=== PATIENT | male | born 1975 | race African-American/Black ===

== ENCOUNTER 2021-12-11 08:07 | Outpatient (REF) | payer OTHER, SELFPAY ==
[2021-12-11 08:49] LABS: Hematocrit 41.9 % (42.0-52.0); Hemoglobin 13.9 g/dl (14.0-18.0); Mean Corpuscular HGB Conc 33.2 g/dl (31.0-36.0); Mean Corpuscular Hemoglobin 28.1 pg (27.0-33.0); Mean Corpuscular Volume 84.6 fL (80.0-98.0); Platelet Count 180 X10*3/uL (160-400); Red Blood Count 4.95 X10*6/uL (4.60-5.80); Red Cell Distribution Width 13.3 % (11.0-16.0); White Blood Count 3.7 X10*3/uL (4.8-10.8)
[2021-12-11 09:30] LABS: Alanine Aminotransferase 19 U/L (0-40); Albumin Level 4.2 g/dL (3.5-5.0); Alkaline Phosphatase 95 U/L (39-117); Anion Gap 12 (12-20); Aspartate Amino Transferase 18 U/L (5-37); Bilirubin Total 0.5 mg/dL (0.0-1.0); Blood Urea Nitrogen 18 mg/dL (9-16); Calcium 9.5 mg/dL (8.4-10.2); Carbon Dioxide 25 mmol/L (22-29); Chloride 106 mmol/L (96-108); Cholesterol 245 mg/dL; Estimated Glomerular Filt Rate > 60; Glucose Fasting 103 mg/dL (60-99); HDL Cholesterol 59 mg/dL; LDL Cholesterol Calculated 168 mg/dl; Potassium 4.4 mmol/L (3.3-5.1); Sodium 139 mmol/L (135-145); Total Protein 7.6 g/dL (6.5-8.0); Triglycerides 90 mg/dL
[2021-12-11 09:51] LABS: Prostate Specific Antigen Scr 0.37 ng/mL (<0.05-4.0); TSH reflex Free T4 1.49 uIU/mL (0.32-4.0)
[2021-12-11 10:00] LABS: Microalbumin Urine < 5.0 mg/L
== END 2021-12-11 08:08 | disposition home or self-care (01) ==
LOC: HO.LAB 08:07
PROVIDERS: PCP Physician Assistant; Visit Provider Physician Assistant
DX: Z12.5 Encounter for screening for malignant neoplasm of prostate (principal); E66.09 Other obesity due to excess calories; Z68.39 Body mass index [BMI] 39.0-39.9, adult; I10 Essential (primary) hypertension
CPT/HCPCS: 36415; 80053; 80061; 82043; 84153; 84443; 85027

== ENCOUNTER 2023-06-07 13:45 | Outpatient (AMB) | payer MEDICARE, SELFPAY ==
--- NOTE | 2023-06-07 13:58 | A.OFFPC_ITS ---
Vital Signs 06/07/23 13:59 Height 6 ft 4 in Weight 324 lb 8 oz BMI 39.5 BP 130/90 H Blood Pressure Location Lt brachial Position Sitting Pulse Source Pulse Oximeter Pulse Oximetry (%) 98 Oxygen Delivery Method Room Air Intake Visit Reasons: f/u Intake Note: Pt is here for Annual Exam. Store Director Required: No Accompanied by: Self / Same As Patient Allergies No Known Allergies Allergy (Verified 06/07/23 14:20) Medication List - Last Reconciled 06/07/23 by Khari Lyles PA-C blood pressure kit-extra large As directed Tobacco use date assessed: 06/07/23 Dental Screening Dental Screen Date: 06/07/23 Did you have a dental visit in the last 12 months?: Yes Did you have a dental problem in the last 6 months where you did not have access to dental care?: No Was dental information given to patient?: Patient has dentist HPI f/u HPI Details Patient is a 47 year male here today for a follow-up visit. patient has a past medical history significant for obesity hypertension, chronic constipation Concerns-- > he reports he continues to have bilateral hand numbness and tingling. He did have a carpal tunnel release over his right hand though felt it was not effective. He never had gotten a EMG prior to getting carpal tunnel release surgery in 2018. .. Chronic constipation: Reports having constipation over the last year . Need to take stool softner / laxative to use the bathroom. Reports he can go week without using the bathroom. Often has to strain well passing stool. Denies any blood per rectum. He has now been developing some abdominal pain that is fairly global eyes did also reports having some difficulty with swallowing and feels that foods often gets stuck in his lower esophagus .. hypertension: blood pressure elevated today in office. He admits to not regularly taking his blood pressure medication. . Is supposed to be on amlodipine 5 mg. Denies headaches, chest discomforts or shortness of breath on exertion. .. Hyperlipidemia: most recent fasting lipid panel showing total cholesterol at 245, LDL at 160 PLAN: Will work on lifestyle to be more physically active to reduce his weight and reduce his high cholesterol foods in his diet. Laboratory Tests 12/11/21 12/11/21 12/11/21 08:18 08:18 08:20 Hgb 13.9 L Creatinine 1.11 Fasting Glucose 103 H Cholesterol 245 LDL Cholesterol, C alc 168 PSA Screen 0.37 TSH 1.49 Urine Microalbumin < 5.0 PFSH Medical History (Updated 06/07/23 @ 14:42 by Khari Lyles PA-C) Urinary hesitancy Family History Mother DMII (diabetes mellitus, type 2) HTN (hypertension) Father HTN (hypertension) Social History Housing: Apartment Alcohol intake: current Alcohol intake frequency: holidays/special occasions only Alcohol type: beer Patient Tobacco Use Status: Former Tobacco user Quit Date: 2018 Tobacco use type: Cigarette e-Cigarette/Vaping Use: Never Used Second Hand Smoke Exposure: Yes service: No Current occupational status: employed Current occupation: [employer] Cognitive needs: No Hearing needs: No Vision needs: Yes Questionnaire PHQ-9 Over the last 2 weeks, how often have you been bothered by any of the following problems? 1. Little interest or pleasure in doing things: not at all 2. Feeling down, depressed, or hopeless: not at all 3. Trouble falling or staying asleep, or sleeping too much: not at all 4. Feeling tired or having little energy: not at all 5. Poor appetite or overeating: not at all 6. Feeling bad about yourself - or that you are a failure or have let yourself or your family down: not at all 7. Trouble concentrating on things, such as reading the newspaper or watching television: not at all 8. Moving or speaking so slowly that other people could have noticed. Or the opposite - being so fidgety or restless that you have been moving around a lot more than usual: not at all 9. Thoughts that you would be better off or of hurting yourself in some way: not at all Total score: 0 Depression Screening Interpretation: Negative Depression Screening Done: Yes [id number] - PHQ-9 Billing: Yes Source: Developed by Drs. Enrico Herron, Jenise De La Rosa, Troy Alamo and colleagues, with an educational mayur from [employer]. Thrive Questionnaire Date Thrive assessed: 06/07/23 I am a: Patient What is your living situation today?: I have a steady place to live Within the past 12 months, did the food you bought not last and you didn't have the money to get more?: Never true Within the past 12 months, did you worry whether your food would run out before you got money to buy more?: Never true Do you have trouble paying for medicines?: No Do you have trouble getting transportation to medical appointments?: No Do you have trouble paying your heating and electricity bill?: No Do you have trouble taking care of your child, family member or friend?: No Do you have trouble with day-to-day activities such as bathing, preparing meals, shopping, managing finances, etc.?: No Are you currently unemployed and looking for a job?: No Are you interested in more education?: No Please select the resources that you would like help with: None Currently or been in a relationship where the following occur: no concerns reported AUDIT C Alcohol Use Questionnaire (AUDIT-C) 1. How often do you have a drink containing alcohol?: 2-3 times a week 2. How many drinks containing alcohol do you have on a typical day when you are drinking?: 1 or 2 3. How often do you have six or more drinks on one occasion?: Never Total Score: 3 KHOI-7 AMB Questionnaire KHOI-7 Date KHOI - 7 assessed: 06/07/23 Feeling nervous, anxious, or on edge: 0 = Not at all Not being able to stop or control worryin = Not at all Worrying too much about different things: 0 = Not at all Trouble relaxin = Not at all Being so restless that it is hard to sit still: 0 = Not at all Becoming easily annoyed or irritable: 0 = Not at all Feeling afraid as if something awful might happen: 0 = Not at all Total KHOI-7 score (0-4 normal; 5-9 mild; 10-14 moderate; 15-21 severe): 0 Source: Developed by Drs. Enrico Herron, Jenise De La Rosa, Troy Alamo and colleagues, with an educational mayur from [employer]. KHOI-7 Assessment Billing KHOI-7 Assessment Tool: KHOI-7 Assessment 62258 Review of Systems Const Denies headache(s) Eyes Denies loss of vision ENT Denies vertigo, Denies dizziness, Denies headache(s) and Denies sore throat Card Denies chest pain, Denies leg edema and Denies lightheadedness Resp Denies cough, Denies hemoptysis and Denies wheezing GI Reports abdominal pain, Denies melena, Reports constipation, Reports GI cramping, Denies diarrhea and Denies vomiting Denies dysuria, Denies urinary frequency and Denies urinary urgency Musc Denies arthralgias, Denies joint swelling, Denies numbness and Denies tingling Neuro Denies Abnormal speech present, Denies behavioral changes, Denies vertigo, Denies dizziness, Denies headache(s), Denies loss of vision, Denies memory loss, Denies numbness and Denies tingling Psych Denies anxiety, Denies behavioral changes, Denies depression, Denies memory loss and Denies panic attacks Cheikh/Lymph Denies easy bleeding and Denies easy bruising Aller/Immun Denies wheezing Physical exam (Primary Care) Vital Signs: Last Vital Signs BP 130/90 H 06/07/23 13:59 Pulse Ox 98 06/07/23 13:59 Oxygen Delivery Method Room Air 06/07/23 13:59 BMI result Body Mass Index 39.5 Tobacco/Smoking Status: Tobacco use Status Tobacco use date assessed 06/07/23 06/07/23 14:12 Patient Tobacco Use Status Former Tobacco user 06/07/23 14:05 Tobacco use type Cigarette 06/07/23 14:05 e-Cigarette/Vaping Use Never Used 06/07/23 14:05 PHQ-9: PHQ-9 Score PHQ-9: Total score 0 06/07/23 14:26 Depression Screening Interpretation: Negative Thrive Assessment: Date of Thrive Assessment Date Thrive assessed 06/07/23 06/07/23 14:12 Currently or been in a relationship where the following occur: no concerns reported Const General: healthy appearing, no acute distress, alert and awake Nutritional Appearance: well nourished Orientation/consciousness: oriented to person, oriented to place and oriented to time HENMT Ears: TM's normal bilaterally General nose exam: Normal nasal mucous membranes and turbinates present Eyes Conjunctivae: conjunctivae normal Sclerae: sclerae normal Pupils: Equal, round and reactive pupils present Neck Neck: Yes no lymphadenopathy and Yes no JVD Thyroid: Thyroid normal Carotids: no bruits Resp Effort & Inspection: normal respiratory effort and not tachypneic Auscultation: no crackles, no rales, no rhonchi and no wheezes Cardio Rate: regular rate Rhythm: regular rhythm Heart sounds: no murmurs and normal S1 and S2 GI Palpation (GI): Soft to palpation, nontender, no hepatomegaly and no splenomegaly Auscultation: normal bowel sounds Skin General skin exam: no rashes or lesions noted and dry skin Neuro General: oriented to person, oriented to place and oriented to time Cranial nerves: Yes Equal, round and reactive pupils present Speech: No Abnormal speech present Gait exam (Neuro): Normal gait present Motor exam (neuro): no tremor noted Extrem Right upper extremity: full ROM Left upper extremity: full ROM Right lower extremity: full ROM; no edema Left lower extremity: full ROM; no edema Psych Mental Status: mental status grossly normal Speech and movement: Normal speech and movement present Affect: normal affect Attitude: cooperative Thought process: Normal thought process present Office Procedures Flu Questionnaire Does the patient have a severe egg allergy?: No Does the patient have severe life threatening allergies?: No Does the patient have a fever or illness today?: No Has the patient ever had Guillain-[place] Syndrome?: No Has the patient ever had any past reaction to a flu shot?: No Immunizations flu vacc [id number] 6mos up(PF) 60 mcg(15 mcgx4)/0.5 mL IM syringe Performing Provider: Khari Lyles PA-C Performing Location: [facility] Administered by: MAX Holbrook on 06/07/23 14:27 Dose Route Admin Location Dispensed Lot Number Expiration Date [facility] Ammonia Distiller 0.5 mL IM Left Deltoid 0.5 mL [id number] 01/28/24 22631-267-73 [place] VIS Given Date VIS Provided VIS Publication Date 06/07/23 Single Vaccine 21 Eligibility Eligibility Date Funding Source Not [facility] Eligible 06/07/23 Private Assessment and Plan Assessment & Plan (1) HTN (hypertension): Code(s): I10 - Essential (primary) hypertension Qualifiers: Hypertension type: primary hypertension Qualified Code(s): I10 - Essential (primary) hypertension Plan: Blood pressure elevated today in office.. Advised to restart amlodipine 5 mg daily. Goal blood pressures to be below 140/90. Advised to do home blood pressure monitoring to assure normal blood pressures at home. (2) Obesity: Code(s): E66.9 - Obesity, unspecified Qualifiers: Obesity type: due to excess calories Obesity classification: adult class 2 (BMI 35 - 39.9) Serious obesity comorbidity presence: without serious comorbidity Body mass index: BMI 39.0-39.9 Qualified Code(s): E66.09 - Other obesity due to excess calories; Z68.39 - Body mass index [BMI] 39.0-39.9, adult Plan: Patient does understand he has BMI is over 30 will work on being more physically active in adapting to better eating habits to reduce his weight. (3) Constipation: Code(s): K59.00 - Constipation, unspecified Qualifiers: Constipation type: other constipation type Qualified Code(s): K59.09 - Other constipation Plan: Continues to suffer with chronic constipation. Has tried many different stool softeners and laxatives with only minimal relief. He reports he can go 1 week without passing stool. He does strain heavily to pass stool. He is now reporting more more abdominal pain and bloating. He reports the only way he is able to pass stool is to use to collect.. He otherwise denies any blood in his stool. Will evaluated with abdominal ultrasound and a barium swallow due to his upper GI symptoms. Will refer back to [facility] gastro[facility]ology for possible colonosopy (4) HLD (hyperlipidemia): Code(s): E78.5 - Hyperlipidemia, unspecified Qualifiers: Hyperlipidemia type: mixed hyperlipidemia Plan: Patient's most recent fasting lipid panel showing elevated total cholesterol and LDL above 160. Advised on low-cholesterol diet and patient agrees and understands. . (5) Colon cancer screening: Code(s): Z12.11 - Encounter for screening for malignant neoplasm of colon (6) Dysphagia: Code(s): R13.10 - Dysphagia, unspecified Qualifiers: Dysphagia type: unspecified Qualified Code(s): R13.10 - Dysphagia, unspecified Plan: Reports experiencing some dysphagia in the lower esophagus. (7) Carpal tunnel syndrome on both sides: Code(s): G56.03 - Carpal tunnel syndrome, bilateral upper limbs Plan: Patient's signs and symptoms are concerning for continued carpal tunnel syndrome and bilateral hands. Will send for EMG for upper should extremities to evaluate for median nerve neuropathy. Advised patient to consider another carpal tunnel release. Orders: Orders Comprehensive Tye. Panel Fast Today I10 - Essential (primary) hypertension Complete Blood Count no Diff Today I10 - Essential (primary) hypertension FL barium swallow w SBFT Today R13.10 - Dysphagia, unspecified Influenza [id number] Immunization Today Z23 - Encounter for immunization Lipid Panel Today E78.2 - Mixed hyperlipidemia US abdomen complete Today K59.09 - Other constipation NE electromyogram (EMG) Today G56.03 - Carpal tunnel syndrome, bilateral upper limbs Referrals Gastroenterology Referral K59.00 - Constipation, unspecified, Z12.11 - Encounter for screening for malignant neoplasm of colon Medications: New amlodipine 5 mg PO DAILY 90 tabs 1RF R39.11 - Hesitancy of micturition lactulose 20 grams (30 mL) PO DAILY 30 days PRN 1,200 mL 0RF laxative effect K59.09 - Other constipation valacyclovir (Valtrex) 500 mg PO DAILY 30 days 30 tabs 0RF B00.9 - Herpesviral infection, unspecified Coding Level of Care Code Est Pt Level 4 (55300) Diagnoses Primary hypertension I10 Hypertension type: primary hypertension Class 2 obesity due to excess calories without serious comorbidity with body mass index (BMI) of 39.0 to 39.9 in adult E66.09; Z68.39 Obesity type: due to excess calories Obesity classification: adult class 2 (BMI 35 - 39.9) Serious obesity comorbidity presence: without serious comorbidity Body mass index: BMI 39.0-39.9 Other constipation K59.09 Constipation type: other constipation type HLD (hyperlipidemia) E78.5 Hyperlipidemia type: mixed hyperlipidemia Colon cancer screening Z12.11 Dysphagia, unspecified type R13.10 Dysphagia type: unspecified Carpal tunnel syndrome on both sides G56.03 Additional Codes KHOI-7 Assessment Billing - KHOI-7 Assessment Tool: KHOI-7 Assessment 34286 ([id number])
[2023-06-07 13:59] VITALS: BP 130/90; O2SAT 98; BMI 39.5
== END 2023-06-07 14:53 | disposition home or self-care (01) ==
PROVIDERS: PCP Physician Assistant; Visit Provider Physician Assistant
DX: I10 Essential (primary) hypertension (principal); E66.09 Other obesity due to excess calories; Z68.39 Body mass index [BMI] 39.0-39.9, adult; K59.09 Other constipation; E78.5 Hyperlipidemia, unspecified; Z12.11 Encounter for screening for malignant neoplasm of colon; R13.10 Dysphagia, unspecified; G56.03 Carpal tunnel syndrome, bilateral upper limbs; Z23 Encounter for immunization
CPT/HCPCS: 90471; 90686; 99214

== ENCOUNTER 2023-06-14 11:26 | Outpatient (REF) | payer BC, SELFPAY ==
--- NOTE | ~2023-06-14 | US_ITS ---
EXAMINATION: US ABDOMEN COMPLETE CLINICAL INFORMATION: Other constipation. COMPARISON: None available. TECHNIQUE: Real-time imaging of the abdominal viscera. Technically difficult study secondary to bowel gas and body habitus. FINDINGS: PANCREAS: Obscured by bowel gas and could not be evaluated. ABDOMINAL AORTA: The proximal, mid, and distal segments are normal in caliber. INFERIOR VENA CAVA: Visualized portions are normal. LIVER: The liver is normal in size. The liver contour is normal. There is diffuse increased liver parenchymal echogenicity, consistent with hepatic steatosis. No focal hepatic lesion. There is no intrahepatic biliary duct dilatation seen. GALLBLADDER: Normal. The gallbladder is physiologically distended without evidence of stones, sludge, polyps, wall thickening or pericholecystic fluid. COMMON BILE DUCT: Not seen. RIGHT KIDNEY: Normal. No hydronephrosis. No renal calculi or focal parenchymal lesions. The kidney measures 11.2 cm in maximum dimension. LEFT KIDNEY: Normal. No hydronephrosis. No renal calculi or focal parenchymal lesions. The kidney measures 10.7 cm in maximum dimension. SPLEEN: Normal. The spleen measures 11.1 cm in maximum dimension. FREE FLUID: None. US/US abdomen complete IMPRESSION: Hepatic steatosis.
[2023-06-14 13:29] LABS: Hematocrit 43.2 % (42.0-52.0); Hemoglobin 14.2 g/dl (14.0-18.0); Mean Corpuscular HGB Conc 32.9 g/dl (31.0-36.0); Mean Corpuscular Hemoglobin 28.2 pg (27.0-33.0); Mean Corpuscular Volume 85.9 fL (80.0-98.0); Platelet Count 160 X10*3/uL (160-400); Red Blood Count 5.03 X10*6/uL (4.60-5.80); Red Cell Distribution Width 13.5 % (11.0-16.0); White Blood Count 4.5 X10*3/uL (4.8-10.8)
[2023-06-14 14:26] LABS: Alanine Aminotransferase 13 U/L (0-40); Albumin Level 4.1 g/dL (3.5-5.0); Alkaline Phosphatase 82 U/L (39-117); Anion Gap 11 (12-20); Aspartate Amino Transferase 17 U/L (5-37); Bilirubin Total 0.4 mg/dL (0.0-1.0); Blood Urea Nitrogen 13 mg/dL (9-16); Calcium 9.4 mg/dL (8.4-10.2); Carbon Dioxide 27 mmol/L (22-29); Chloride 108 mmol/L (96-108); Cholesterol 217 mg/dL (<200); Estimated Glomerular Filt Rate > 60; Glucose Fasting 86 mg/dL (60-99); HDL Cholesterol 56 mg/dL (>40); LDL Cholesterol Calculated 146 mg/dL (<100); Potassium 4.2 mmol/L (3.3-5.1); Sodium 142 mmol/L (135-145); Total Protein 7.6 g/dL (6.5-8.0); Triglycerides 78 mg/dL (<150)
== END 2023-06-14 11:27 | disposition home or self-care (01) ==
LOC: HO.HMGCX 11:26
PROVIDERS: PCP Physician Assistant; Visit Provider Physician Assistant
DX: K59.09 Other constipation (principal); R13.10 Dysphagia, unspecified; I10 Essential (primary) hypertension; E78.2 Mixed hyperlipidemia
CPT/HCPCS: 36415; 76700; 80053; 80061; 85027; 99202

== ENCOUNTER 2023-06-14 14:55 | Outpatient (AMB) | payer MEDICARE, SELFPAY ==
--- NOTE | 2023-06-14 14:59 | MHC.OFFVIS ---
Intake Vital Signs 06/14/23 15:01 Height 6 ft 4 in Weight 321 lb 13.998 oz BMI 39.2 Blood Pressure Location Lt brachial Position Sitting Intake Visit Reasons: Constipation - Requested to be seen by MD Intake Note: Mukul presents in the office as a follow up - requested to follow up with MD. CC: He states that he is having issues with constipation. HE will need a stimulation in order to go to the bathroom and it has been happening for 3 years now. 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 He gets discomfort in his stomach and it is hard to een pass gas. He gets bloated and gassy and he is unable to even pass the gas. Audiovisual Equipment Operator Required: No Allergies No Known Allergies Allergy (Verified 06/14/23 15:) HPI HPI Comments History of Present Illness Details 47y.o M with PMH of HTN and constipation who is here for GI issues as below. Chronic constipation: Reports having severe constipation since 3 years which he describes as having a BM every 3 days, the stool itself is soft but would need to strain considerably. No blood in stool. Takes dulcolax 20mg on weekends which makes him go within 12 hours. 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 Drinks 20oz of water in the entire day. Has 1-2 meals a day. Dyspepsia: Reports that more often than not, has bloating after meals and feels that he is not able to burp as well as he used to. Has also noticed sensation of food getting stuck with certain foods. Takes soda to relieve this feeling but does not haev as much relief. [facility] Medical History Urinary hesitancy Surgical History (Updated 06/14/23 @ 15:02 by LOURDES Salgado) History of lumbar surgery Hx of carpal tunnel repair Family History Mother DMII (diabetes mellitus, type 2) HTN (hypertension) Father HTN (hypertension) Social History Housing: Apartment Alcohol intake: current Alcohol intake frequency: holidays/special occasions only Alcohol type: beer Patient Tobacco Use Status: Former Tobacco user Quit Date: 2018 Tobacco use type: Cigarette e-Cigarette/Vaping Use: Never Used Second Hand Smoke Exposure: Yes service: No Current occupational status: employed Current occupation: [employer] Cognitive needs: No Hearing needs: No Vision needs: Yes Review of Systems Const All systems reviewed & are unremarkable except as noted in HPI and below Physical Exam Vital Signs: BMI result Body Mass Index 39.2 Gen appear: NAD HEENT: nonicteric, no cervical lymphadenopathy Chest: CTA CVS: Regular S1/S2 Abd: soft, nontender, small reducible umbilical hernia Ext: no peripheral edema Neuro: A/Ox3, noted to move all extremities spontaneously Psych: interacting appropriately Assessment & Plan Assessment & Plan (1) Colon cancer screening: Code(s): Z12.11 - Encounter for screening for malignant neoplasm of colon (2) Dysphagia: Code(s): R13.10 - Dysphagia, unspecified Qualifiers: Dysphagia type: unspecified Qualified Code(s): R13.10 - Dysphagia, unspecified (3) Constipation: Code(s): K59.00 - Constipation, unspecified Qualifiers: Constipation type: other constipation type Qualified Code(s): K59.09 - Other constipation Plan CIC: Discussed likely as a result of diet low in fiber, decreased fluid intake and low levels of activity since 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 Plan: - Increase hydration - pt reluctant as does not want to make frequent stops while driving - Soluble fiber - again counseled that this may not work if not accompanied with ample fludis and in fact may worsen constipation - Add osmotic laxative to senna such as miralax every day or every other day titrated to effect of at least 3 BMs per week without straining. - Elevate legs while having BM - Labs ordered to check for hypothyroid, electrolyte abnl contributing to constipation Dysphagia with dyspepsia: Differentials include GERD with or without esophagitis, dysmotiltiy, esophageal diverticulum/web/ring, stricture etc. Plan: - Barium esophagogram with UGIS - Omeprazole trial - We will also book him for EGD to evaluate difficulty swallowing CRC screening: Meets criteria for CRC screening and prefers colo. This can be done at the same time as EGD. Split prep instructions reviewed. Pt aware that office will contact him in 1-2 months to book this as procedures not emergent. Orders: Orders Hemoglobin A1c 06/14/23 K59.00 - Constipation, unspecified Transglutaminase IgA 06/14/23 K59.00 - Constipation, unspecified Magnesium 06/14/23 K59.00 - Constipation, unspecified TSH reflex Free T4 06/14/23 K59.00 - Constipation, unspecified Immunoglobulin A 06/14/23 K59.00 - Constipation, unspecified FL upper GI w Ba Swallow 06/14/23 R13.10 - Dysphagia, unspecified Coding Level of Care Code New Pt Level 4 (77582) Diagnoses Colon cancer screening Z12.11 Dysphagia, unspecified type R13.10 Dysphagia type: unspecified Other constipation K59.09 Constipation type: other constipation type
[2023-06-14 15:01] VITALS: BMI 39.2
== END 2023-06-14 16:12 | disposition home or self-care (01) ==
PROVIDERS: PCP Physician Assistant; Visit Provider Internal Medicine
DX: K59.09 Other constipation (principal); R13.10 Dysphagia, unspecified; Z12.11 Encounter for screening for malignant neoplasm of colon
CPT/HCPCS: 99204

== ENCOUNTER 2023-06-14 15:54 | Outpatient (REF) | payer BC, SELFPAY ==
[2023-06-14 16:54] LABS: Estimated Average Glucose 108 mg/dL; Hemoglobin A1c % 5.4 % (<6.0)
[2023-06-14 17:09] LABS: Magnesium 2.1 mg/dL (1.6-2.6)
[2023-06-14 17:25] LABS: TSH reflex Free T4 1.19 uIU/mL (0.32-4.0)
[2023-06-16 12:58] LABS: Transglutaminase IgA <1.0 U/mL
[2023-06-16 16:29] LABS: Immunoglobulin A 260 mg/dL (47-310)
== END 2023-06-14 15:55 | disposition home or self-care (01) ==
LOC: HO.LAB 15:54
PROVIDERS: PCP Physician Assistant; Visit Provider Internal Medicine
DX: K59.00 Constipation, unspecified (principal)
CPT/HCPCS: 36415; 82784; 83036; 83735; 84443; 86364

== ENCOUNTER 2023-09-01 08:54 | Outpatient (REF) | payer BC, SELFPAY ==
--- NOTE | ~2023-09-01 | FL_ITS ---
EXAMINATION: XR FLUOROSCOPY UPPER GI WITH AIR CLINICAL INFORMATION: Dysphagia. Reflux. COMPARISON: None TECHNIQUE: Fluoroscopic air contrast upper GI examination was performed utilizing standard techniques with thin and thick barium and effervescent granules. Numerous spot images were obtained. FINDINGS: Lateral cine images of the oropharynx and hypopharynx demonstrate normal swallow mechanism with normal epiglottic inversion and soft palate elevation. No tracheal penetration, glottic or subglottic aspiration identified. No nasopharyngeal reflux present. Hypopharyngeal structures appear normal without evidence of mass or diverticulum. There was no significant cricopharyngeal achalasia. Dual and single contrast images of the esophagus demonstrate normal caliber, contour, and mucosal pattern. No evidence of stricture, mass, or ulcerations identified. Primary esophageal peristalsis was normal. Mild disorganized tertiary contractions are noted in the distal esophagus. A small type I hiatal hernia is present. Gastroesophageal reflux is seen in the mid and distal esophagus. Dual contrast and single contrast images of the stomach demonstrated normal contour. Gastric mucosa appears thickened. There are multiple tiny areas of contrast pooling that may represents small superficial mucosal ulcers. No mass is seen. Contrast freely passed into the gastric antrum and duodenal bulb without delay. Single and air-contrast images of the duodenal bulb demonstrate no abnormality. The duodenal sweep has a normal appearance, course, and mucosal fold appearance. No malrotation. The imaged proximal jejunum has a normal fold pattern and caliber. Somewhat prominent C5-C6 ventral butterfly type osteophyte present, without definite mass effect upon the hypopharynx or upper esophagus. FLUOROSCOPY TIME: 8 minutes 59 seconds Number of Spot Images: 13 Number of Cine: 12 DOSE AREA PRODUCT: 9232 uGy-m2 (microgray-meter squared) FL/FL upper GI w Ba Swallow IMPRESSION: 1. Mildly disorganized esophageal peristalsis. 2. Small type I hiatal hernia. 3. Moderate gaseous esophageal reflux. 4. Thickened gastric mucosal folds with multiple areas of contrast pooling. These findings are suggestive of erosive gastritis. Recommend correlation with EGD. This procedure was performed by John Torres PA-C, and supervised by Dr. Duran
== END 2023-09-01 08:55 | disposition home or self-care (01) ==
LOC: HO.XRAY 08:54
PROVIDERS: PCP Physician Assistant; Visit Provider Internal Medicine
DX: R13.10 Dysphagia, unspecified (principal)
CPT/HCPCS: 74240

== ENCOUNTER → 2023-09-01 08:58 | Outpatient (BNV) | payer BC, SELFPAY | PROVIDERS: PCP Physician Assistant; Visit Provider Radiology Diagnostic Radiology | DX: R13.10 Dysphagia, unspecified (principal) | CPT/HCPCS: 74246 ==

== ENCOUNTER 2023-09-19 13:45 | Outpatient (AMB) | payer MEDICARE, SELFPAY ==
--- NOTE | 2023-09-19 13:50 | A.OFFPC_ITS ---
Vital Signs 09/19/23 13:54 Height 6 ft 4 in Weight 325 lb 2 oz BMI 39.6 BP 118/80 Blood Pressure Location Lt brachial Position Sitting Pulse 90 Pulse Source Pulse Oximeter Pulse Oximetry (%) 97 Oxygen Delivery Method Room Air Intake Visit Reasons: f/u HTN/ Constipation Telecommunications Professional Required: No Accompanied by: Self / Same As Patient Allergies No Known Allergies Allergy (Verified 09/19/23 14:07) Medication List - Last Reconciled 09/19/23 by Khari Lyles PA-C amlodipine 5 mg PO DAILY blood pressure kit-extra large As directed omeprazole 20 mg PO DAILY 90 days valacyclovir (Valtrex) 500 mg PO DAILY 30 days Tobacco use date assessed: 09/19/23 Dental Screening Dental Screen Date: 09/19/23 Did you have a dental visit in the last 12 months?: No Did you have a dental problem in the last 6 months where you did not have access to dental care?: No Was dental information given to patient?: Patient has dentist HPI f/u HTN/ Constipation HPI Details Patient is a 48 year male here today for a follow-up visit. patient has a past medical history significant for obesity hypertension, chronic constipation Concern--> reports having some erectile dysfunction that he attributes to perhaps a psychogenic etiology. Does not have a single consistent partner. Will check his testosterone level. Chronic constipation: Reports having constipation over the last year . Need to take stool softner / laxative to use the bathroom. Reports he can go week without using the bathroom. Often has to strain well passing stool. Denies any blood per rectum. Has follow-up with agriculture intern and was sent for upper GI series with did show a small hiatal hernia and gastric inflammation. Colonoscopy and endoscopy were recommended. Patient has been started on PPI therapy. .. hypertension: blood pressure acceptable today in office, consistently taking amlodipine 5 mg.. He admits to not regularly taking his blood pressure medication. . Is supposed to be on amlodipine 5 mg. Denies headaches, chest discomforts or shortness of breath on exertion. .. Hyperlipidemia: most recent fasting lipid panel showing total cholesterol at 245, LDL at 160 PLAN: Will work on lifestyle to be more physically active to reduce his weight and reduce his high cholesterol foods in his diet. REPLACED BY [facility] Medical History (Updated 09/19/23 @ 14:18 by Khari Lyles PA-C) Urinary hesitancy Surgical History History of lumbar surgery Hx of carpal tunnel repair Family History Mother DMII (diabetes mellitus, type 2) HTN (hypertension) Father HTN (hypertension) Social History Housing: Apartment Alcohol intake: current Alcohol intake frequency: holidays/special occasions only Alcohol type: beer Patient Tobacco Use Status: Former Tobacco user Quit Date: 2018 Tobacco use type: Cigarette e-Cigarette/Vaping Use: Never Used Second Hand Smoke Exposure: Yes service: No Current occupational status: employed Current occupation: [employer] Cognitive needs: No Hearing needs: No Vision needs: Yes Questionnaire PHQ-9 Over the last 2 weeks, how often have you been bothered by any of the following problems? 1. Little interest or pleasure in doing things: not at all 2. Feeling down, depressed, or hopeless: not at all 3. Trouble falling or staying asleep, or sleeping too much: not at all 4. Feeling tired or having little energy: not at all 5. Poor appetite or overeating: not at all 6. Feeling bad about yourself - or that you are a failure or have let yourself or your family down: not at all 7. Trouble concentrating on things, such as reading the newspaper or watching television: not at all 8. Moving or speaking so slowly that other people could have noticed. Or the opposite - being so fidgety or restless that you have been moving around a lot more than usual: not at all 9. Thoughts that you would be better off or of hurting yourself in some way: not at all Total score: 0 Depression Screening Interpretation: Negative Depression Screening Done: Yes 85888 - PHQ-9 Billing: Yes Source: Developed by Drs. Enrico Herron, Jenise De La Rosa, Troy Alamo and colleagues, with an educational mayur from [employer]. Thrive Questionnaire Date Thrive assessed: 06/07/23 AUDIT C Alcohol Use Questionnaire (AUDIT-C) 1. How often do you have a drink containing alcohol?: 4 or more times a week 2. How many drinks containing alcohol do you have on a typical day when you are drinking?: 5 or 6 3. How often do you have six or more drinks on one occasion?: Never Total Score: 6 KHOI-7 AMB Questionnaire KHOI-7 Date KHOI - 7 assessed: 09/19/23 Feeling nervous, anxious, or on edge: 0 = Not at all Not being able to stop or control worryin = Not at all Worrying too much about different things: 0 = Not at all Trouble relaxin = Not at all Being so restless that it is hard to sit still: 0 = Not at all Becoming easily annoyed or irritable: 0 = Not at all Feeling afraid as if something awful might happen: 0 = Not at all Total KHOI-7 score (0-4 normal; 5-9 mild; 10-14 moderate; 15-21 severe): 0 Source: Developed by Drs. Enrico Herron, Jenise De La Rosa, Troy Alamo and colleagues, with an educational mayur from [employer]. KHOI-7 Assessment Billing KHOI-7 Assessment Tool: KHOI-7 Assessment 68163 Review of Systems Const Denies headache(s) Eyes Denies loss of vision ENT Denies vertigo, Denies dizziness, Denies headache(s) and Denies sore throat Card Denies chest pain, Denies leg edema and Denies lightheadedness Resp Denies cough, Denies hemoptysis and Denies wheezing GI Denies abdominal pain, Denies melena, Reports constipation, Reports dyspepsia, Denies diarrhea and Denies vomiting Denies dysuria, Denies urinary frequency and Denies urinary urgency Musc Denies arthralgias, Denies joint swelling, Denies numbness and Denies tingling Neuro Denies Abnormal speech present, Denies behavioral changes, Denies vertigo, Denies dizziness, Denies headache(s), Denies loss of vision, Denies memory loss, Denies numbness and Denies tingling Psych Denies anxiety, Denies behavioral changes, Denies depression, Denies memory loss and Denies panic attacks Cheikh/Lymph Denies easy bleeding and Denies easy bruising Aller/Immun Denies wheezing Physical exam (Primary Care) Vital Signs: Last Vital Signs Pulse 90 09/19/23 13:54 BP 118/80 02/20/24 13:54 Pulse Ox 97 09/19/23 13:54 Oxygen Delivery Method Room Air 09/19/23 13:54 BMI result Body Mass Index 39.6 BMI Assessment/Plan discussion: High Tobacco/Smoking Status: Tobacco use Status Tobacco use date assessed 09/19/23 09/19/23 14:02 Patient Tobacco Use Status Former Tobacco user 09/19/23 13:50 Tobacco use type Cigarette 09/19/23 13:50 e-Cigarette/Vaping Use Never Used 09/19/23 13:50 PHQ-9: PHQ-9 Score PHQ-9: Total score 0 09/19/23 14:02 Depression Screening Interpretation: Negative Thrive Assessment: Date of Thrive Assessment Date Thrive assessed 06/07/23 09/19/23 13:50 Const Other: OBESE General: healthy appearing, no acute distress, alert and awake Nutritional Appearance: well nourished Orientation/consciousness: oriented to person, oriented to place and oriented to time HENMT Ears: TM's normal bilaterally General nose exam: Normal nasal mucous membranes and turbinates present Eyes Conjunctivae: conjunctivae normal Sclerae: sclerae normal Pupils: Equal, round and reactive pupils present Neck Neck: Yes no lymphadenopathy and Yes no JVD Thyroid: Thyroid normal Carotids: no bruits Resp Effort & Inspection: normal respiratory effort and not tachypneic Auscultation: no crackles, no rales, no rhonchi and no wheezes Cardio Rate: regular rate Rhythm: regular rhythm Heart sounds: no murmurs and normal S1 and S2 GI Palpation (GI): Soft to palpation, nontender, no hepatomegaly and no splenomegaly Auscultation: normal bowel sounds Skin General skin exam: no rashes or lesions noted and dry skin Neuro General: oriented to person, oriented to place and oriented to time Cranial nerves: Yes Equal, round and reactive pupils present Speech: No Abnormal speech present Gait exam (Neuro): Normal gait present Motor exam (neuro): no tremor noted Extrem Right upper extremity: full ROM Left upper extremity: full ROM Right lower extremity: full ROM; no edema Left lower extremity: full ROM; no edema Psych Mental Status: mental status grossly normal Speech and movement: Normal speech and movement present Affect: normal affect Attitude: cooperative Thought process: Normal thought process present Assessment and Plan Assessment & Plan (1) HTN (hypertension): Code(s): I10 - Essential (primary) hypertension Qualifiers: Hypertension type: primary hypertension Qualified Code(s): I10 - Essential (primary) hypertension Plan: Blood pressure acceptable today in office.. Continues on amlodipine. Goal blood pressures to be below 140/90. Advised to do home blood pressure monitoring to assure normal blood pressures at home. (2) Obesity: Code(s): E66.9 - Obesity, unspecified Qualifiers: Obesity type: due to excess calories Obesity classification: adult class 2 (BMI 35 - 39.9) Serious obesity comorbidity presence: without serious comorbidity Body mass index: BMI 39.0-39.9 Qualified Code(s): E66.09 - Other obesity due to excess calories; Z68.39 - Body mass index [BMI] 39.0-39.9, adult Plan: Patient does understand he has BMI is over 30 will work on being more physically active in adapting to better eating habits to reduce his weight. (3) Constipation: Code(s): K59.00 - Constipation, unspecified Qualifiers: Constipation type: other constipation type Qualified Code(s): K59.09 - Other constipation Plan: Continues to suffer with chronic constipation. Has tried many different stool softeners and laxatives with only minimal relief. He reports he can go 1 week without passing stool. He does strain heavily to pass stool. He is now reporting more more abdominal pain and bloating. He reports the only way he is able to pass stool is to use to collect.. He otherwise denies any blood in his stool. Has follow-up with gastro was sent for upper GI which did show gastric inflammation. Has been started on PPI therapy. Colonoscopy endoscopy has been recommended. (4) HLD (hyperlipidemia): Code(s): E78.5 - Hyperlipidemia, unspecified Qualifiers: Hyperlipidemia type: mixed hyperlipidemia Qualified Code(s): E78.2 - Mixed hyperlipidemia Plan: Patient's most recent fasting lipid panel showing elevated total cholesterol and LDL above 160. Advised on low-cholesterol diet and patient agrees and understands. . (5) Dysphagia: Code(s): R13.10 - Dysphagia, unspecified Qualifiers: Dysphagia type: unspecified Qualified Code(s): R13.10 - Dysphagia, unspecified Plan: Reports experiencing some dysphagia , again upper GI series did show gastric inflammation and a small hiatal hernia. has been started on PPI therapy (6) Carpal tunnel syndrome on both sides: Code(s): G56.03 - Carpal tunnel syndrome, bilateral upper limbs Plan: Patient's signs and symptoms are concerning for continued carpal tunnel syndrome and bilateral hands. Will send for EMG for upper should extremities to evaluate for median nerve neuropathy. Advised patient to consider another carpal tunnel release. (7) Erectile dysfunction: Code(s): N52.9 - Male erectile dysfunction, unspecified Qualifiers: Erectile dysfunction type: unspecified Qualified Code(s): N52.9 - Male erectile dysfunction, unspecified Orders: Orders Testosterone, Free/Total Today N52.9 - Male erectile dysfunction, unspecified Prostate Specific Antigen Scr Today N52.9 - Male erectile dysfunction, unspecified, Z12.5 - Encounter for screening for malignant neoplasm of prostate Complete Blood Count no Diff Today K29.70 - Gastritis, unspecified, without bleeding Lipid Panel Today E78.2 - Mixed hyperlipidemia Comprehensive [place]. Panel Fast Today E78.2 - Mixed hyperlipidemia Medications: New sildenafil 100 mg PO DAILY 4 days PRN 4 tabs 0RF sexual activity N52.9 - Male erectile dysfunction, unspecified Coding Level of Care Code Est Pt Level 4 (14247) Diagnoses Primary hypertension I10 Hypertension type: primary hypertension Class 2 obesity due to excess calories without serious comorbidity with body mass index (BMI) of 39.0 to 39.9 in adult E66.09; Z68.39 Obesity type: due to excess calories Obesity classification: adult class 2 (BMI 35 - 39.9) Serious obesity comorbidity presence: without serious comorbidity Body mass index: BMI 39.0-39.9 Other constipation K59.09 Constipation type: other constipation type Mixed hyperlipidemia E78.2 Hyperlipidemia type: mixed hyperlipidemia Dysphagia, unspecified type R13.10 Dysphagia type: unspecified Carpal tunnel syndrome on both sides G56.03 Erectile dysfunction, unspecified erectile dysfunction type N52.9 Erectile dysfunction type: unspecified Additional Codes KHOI-7 Assessment Billing - KHOI-7 Assessment Tool: KHOI-7 Assessment 04563 ([id number])
[2023-09-19 13:54] VITALS: BP 118/80; PULSE 90; O2SAT 97; BMI 39.6
== END 2023-09-19 14:24 | disposition home or self-care (01) ==
PROVIDERS: PCP Physician Assistant; Visit Provider Physician Assistant
DX: I10 Essential (primary) hypertension (principal); E66.09 Other obesity due to excess calories; Z68.39 Body mass index [BMI] 39.0-39.9, adult; K59.09 Other constipation; E78.2 Mixed hyperlipidemia; R13.10 Dysphagia, unspecified; G56.03 Carpal tunnel syndrome, bilateral upper limbs; N52.9 Male erectile dysfunction, unspecified
CPT/HCPCS: 99214

== ENCOUNTER 2023-09-28 14:42 | Outpatient (REF) | payer BC, SELFPAY ==
--- NOTE | 2023-09-28 14:45 | EMG_ITS ---
Chief complaint: History of bilateral Carpal Tunnel Syndrome surgeries 2018 but symptoms did not improve, constant numbness in all fingers Reason for referral: Evaluate for Carpal Tunnel Syndrome Referred by: Khari BUCIO Procedure done: Bilateral upper extremities NCS/EMG Precautions and/or limitations: None The limb temperature was monitored continuously and remained between 32-36 degrees C during the performance of the NCS. Nerve Conduction Studies Anti Sensory Summary Table ?Stim Site NR Onset (ms) Norm Onset (ms) Peak (ms) Norm Peak (ms) O-P Amp (?V) Norm O-P Amp Site1 Site2 Delta-0 (ms) Dist (cm) Erwin (m/s) Norm Erwin (m/s) Left Median Anti Sensory (2nd Digit) Wrist ? 3.7 4.5 <3.6 25.8 >10 Wrist 2nd Digit 3.7 14.0 38 Right Median Anti Sensory (2nd Digit) Wrist ? 3.8 4.8 <3.6 21.4 >10 Wrist 2nd Digit 3.8 14.0 37 Right Radial Anti Sensory (Thumb) Forearm ? 1.6 2.4 <3.1 28.7 Forearm Thumb 1.6 0.0 Left Ulnar Anti Sensory (5th Digit) Wrist ? 2.8 3.7 <3.7 19.6 >15.0 Wrist 5th Digit 2.8 14.0 50 Right Ulnar Anti Sensory (5th Digit) Wrist ? 2.6 3.7 <3.7 16.4 >15.0 Wrist 5th Digit 2.6 14.0 54 Motor Summary Table ?Stim Site NR Onset (ms) Norm Onset (ms) O-P Amp (mV) Norm O-P Amp iAmp (mV) Amp (1st) (%) Site1 Site2 Delta-0 (ms) Dist (cm) Erwin (m/s) Norm Erwin (m/s) Left Median Motor (Abd Poll Brev) Wrist ? 4.9 <3.9 15.4 >4.5 18.4 100.0 Elbow Wrist 6.0 27.0 45 >45 Elbow ? 10.9 15.5 18.2 100.6 Right Median Motor (Abd Poll Brev) Wrist ? 5.2 <3.9 9.4 >4.5 12.4 100.0 Elbow Wrist 5.4 25.0 46 >45 Elbow ? 10.6 10.0 12.8 106.4 Left Ulnar Motor (Abd Dig Minimi) Wrist ? 3.0 <3.0 8.1 >5 9.6 100.0 B Elbow Wrist 5.0 24.0 48 >45 B Elbow ? 8.0 7.2 8.6 88.9 A Elbow B Elbow 1.8 10.0 56 >45 A Elbow ? 9.8 7.3 9.0 90.1 Right Ulnar Motor (Abd Dig Minimi) Wrist ? 2.8 <3.0 9.1 >5 11.4 100.0 B Elbow Wrist 5.1 25.0 49 >45 B Elbow ? 7.9 8.6 10.9 94.5 A Elbow B Elbow 1.2 10.0 83 >45 A Elbow ? 9.1 8.1 10.3 89.0 EMG ?Side Muscle Nerve Root Ins Act Fibs Psw Amp Dur Poly Recrt Int Pat Comment Right FlexCarRad Median C6-7 Nml Nml Nml Nml Nml 0 Nml Complete Right Biceps Musculocut C5-6 Nml Nml Nml Nml Nml 0 Nml Complete Right Triceps Radial C6-7-8 Nml Nml Nml Nml Nml 0 Nml Complete Right Deltoid Axillary C5-6 Nml Nml Nml Nml Nml 0 Nml Complete Left FlexCarRad Median C6-7 Nml Nml Nml Nml Nml 0 Nml Complete Left Biceps Musculocut C5-6 Nml Nml Nml Nml Nml 0 Nml Complete Left Triceps Radial C6-7-8 Nml Nml Nml Nml Nml 0 Nml Complete Left Deltoid Axillary C5-6 Nml Nml Nml Nml Nml 0 Nml Complete Left Abd Poll Brev Median C8-T1 Nml Nml Nml Nml Nml 0 Nml Complete Right 1stDorInt Ulnar C8-T1 Nml Nml Nml Nml Nml 0 Nml Complete FINDINGS: Bilateral median motor nerves showed prolonged distal latency, normal amplitude and normal conduction velocity. Bilateral median sensory nerves prolonged peak latency. All other nerves tested were within normal. Concentric needle EMG was performed in selected muscles of the bilateral upper extremities. Study did not reveal signs of electric abnormalities as shown in the table below. IMPRESSION: 1. This is an abnormal study. 2. There is electrodiagnostic evidence for bilateral moderate-severe median neuropathy at the wrist, consistent with carpal tunnel syndrome. 3. There is no electrodiagnostic evidence for ulnar neuropathy, brachial plexopathy, or cervical radiculopathy. CLINICAL COMMENT: Unfortunately patient did not have EMG prior to surgery, no comparison available.. Thank you for your kind referral. Lesly Garza MD, RYLEE Board Certified, [place] [employer] and [employer] (ABPMR) Board Certified, [place] Board [employer] Electrodiagnostic Medicine (ABEM) CODIN 09841 x 2 MTDD
== END 2023-09-28 14:43 | disposition home or self-care (01) ==
LOC: HO.NEURO 14:42
PROVIDERS: PCP Physician Assistant; Visit Provider Physician Assistant
DX: G56.03 Carpal tunnel syndrome, bilateral upper limbs (principal)
CPT/HCPCS: 95886; 95911

== ENCOUNTER → 2023-09-28 14:45 | Outpatient (BNV) | payer BC, SELFPAY | PROVIDERS: PCP Physician Assistant; Visit Provider Physical Medicine & Rehabilitation | DX: G56.03 Carpal tunnel syndrome, bilateral upper limbs (principal); G56.13 Other lesions of median nerve, bilateral upper limbs | CPT/HCPCS: 95886; 95911 ==

== ENCOUNTER 2023-10-31 13:51 | Outpatient (AMB) | payer BC, SELFPAY ==
--- NOTE | 2023-10-31 14:00 | MHC.OFFVIS ---
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 Patient reports ongoing numbness for many years. Hx of B/L CTR surgery 2019. He states that his symptoms are constant through out the day. He notices that he has to shake his hands awake or clap them together. Allergies No Known Allergies Allergy (Verified 10/31/23 14:04) HPI LIFT OPERATOR- CTS B/L HPI Details 48-year-old right hand dominant male who presents in the office today, as a new patient, for an evaluation of carpal tunnel in the bilateral upper extremities. The patient was seen by his PCP on 09/19/2023 who referred him for an EMG study. Patient reports numbness in the bilateral upper extremities that has been present for many years. He states his symptoms are constant through out the day. He also reports that he has to shake his hands awake or clap them. Patient has a surgical history of bilateral carpal tunnel release, in 2019. Patient is currently employed as a Arboriculturist. [facility] Medical History (Updated 10/31/23 @ 14:47 by Janelle Bolton) Urinary hesitancy Surgical History History of lumbar surgery Hx of carpal tunnel repair Family History Mother DMII (diabetes mellitus, type 2) HTN (hypertension) Father HTN (hypertension) Social History Housing: Apartment Alcohol intake: current Alcohol intake frequency: holidays/special occasions only Alcohol type: beer Patient Tobacco Use Status: Former Tobacco user Quit Date: 2018 Tobacco use type: Cigarette e-Cigarette/Vaping Use: Never Used Second Hand Smoke Exposure: Yes service: No Current occupational status: employed Current occupation: [employer] Cognitive needs: No Hearing needs: No Vision needs: Yes Review of Systems Const All systems reviewed & are unremarkable except as noted in HPI and below Physical Exam Vital Signs: BMI result Body Mass Index 41.7 Const General: cooperative, healthy appearing and no acute distress Resp Effort & Inspection: normal respiratory effort and able to speak in complete sentences Cardio Rate: regular rate Peripheral pulses: Peripheral pulses 2+ throughout GI Palpation (GI): Soft to palpation Skin Lesions: no lesions Rashes: no rashes Extrem Other: Bilateral hands: Normal to inspection. No ecchymosis, erythema, or edema. Able to perform full finger flexion, extension, abduction, adduction. Difficulty performing finger cross and okay sign. Able to make a closed fist. Sensation intact. Capillary refill is brisk. Radial pulse intact. Assessment & Plan Assessment & Plan (1) Right carpal tunnel syndrome: Code(s): G56.01 - Carpal tunnel syndrome, right upper limb (2) Left carpal tunnel syndrome: Code(s): G56.02 - Carpal tunnel syndrome, left upper limb Plan Mr. White is a 48-year-old right hand dominant male who presents in the office today, as a new patient, for an evaluation of carpal tunnel in the bilateral upper extremities. The patient was seen by his PCP on 09/19/2023 who referred him for an EMG study. Patient reports numbness in the bilateral upper extremities that has been present for many years. He states his symptoms are constant through out the day. He also reports that he has to shake his hands awake or clap them. Patient has a surgical history of bilateral carpal tunnel release, in 2019. Patient is currently employed as a Arboriculturist. Important to note, the patient had bilateral hand carpal tunnel release in 2019, but he does not recall the surgeon?s name. He reports that prior to his surgery he had bilateral numbness and tingling in both hands for an unknown period of time, but he estimates it to be over a year. After the surgery, his symptoms continue to persist and with no resolution or improvement in symptoms. He did have a recent EMG which showed moderate to severe median neuropathy at the wrist bilaterally. Due to the persistence and intermediate manager presentation of his symptoms the he has likely experienced it is highly likely that this is permanent nerve damage. However, he would like to be evaluated by Dr. Urban to discuss the possibility of cortisone injections or any other treatment options that may help to improve his symptoms. Follow up will be with Dr. Urban, or sooner if needed. EMG of the bilateral upper extremities, obtained on 09/28/2023, revealed: 1. This is an abnormal study. 2. There is electrodiagnostic evidence for bilateral moderate-severe median neuropathy at the wrist, consistent with carpal tunnel syndrome. 3. There is no electrodiagnostic evidence for ulnar neuropathy, brachial plexopathy, or cervical radiculopathy. Patient Instructions: Scribed by Janelle Bolton medical doctor nuclear medicine, for Suzette Langley PA-C on 10/31/2023 at 1:54 pm, EST. Coding Level of Care Code New Pt Level 4 (26057) Diagnoses Right carpal tunnel syndrome G56.01 Left carpal tunnel syndrome G56.02
[2023-10-31 14:05] VITALS: BMI 41.7
== END 2023-10-31 14:31 | disposition home or self-care (01) ==
PROVIDERS: PCP Physician Assistant; Visit Provider Physician Assistant
DX: G56.03 Carpal tunnel syndrome, bilateral upper limbs (principal)
CPT/HCPCS: 99204

== ENCOUNTER → 2023-10-31 13:51 | Outpatient (BNVA) | payer BC, SELFPAY | PROVIDERS: PCP Physician Assistant; Visit Provider Physician Assistant ==

== ENCOUNTER 2023-12-06 12:23 | Outpatient (AMB) | payer BC, SELFPAY ==
[2023-12-06 12:25] VITALS: BMI 41.7
--- NOTE | 2023-12-06 12:25 | MHC.OFFVIS ---
Vital Signs 12/06/23 12:25 Height 6 ft 2 in Weight 325 lb BMI 41.7 Intake Visit Reasons: OV-CTS B/L hand-follow up Intake Note: Mukul 48 yr old male presents today for a follow visit for his CTS of bilateral hands. Last seen with Dev Bradford who would like to patient to be further evaluated by Dr Urban due to patient having hx of bilateral hand CTR in 2018/2018 at [facility]. States he has constant numbness and tingling. ( pt doesnt recall doctors name). Patient would like to discuss injection vs surgical intervention. EMG done Allergies No Known Allergies Allergy (Verified 12/06/23 12:43) HPI HPI OV-CTS B/L hand-follow up: Details: Mukul is a 48 year old right hand dominant man who presents for a NCS review of his bilateral hand numbness. He has a hx of bilateral carpal tunnel release in ~2018 or 2019 at [facility]. He does not recall by who. He wants to know if there is anything that can help him improve the sensation in his hands. He complains of numbness in the median nerve distribution bilaterally. Symptoms constant. More normal sensation to the small fingers. He says he has difficulty with some tasks requiring fine motor control, such as tying his shoes. He says his numbness did not improve following his surgery. Prior to surgery his numbness was constant bilaterally, worse at night. He says he had more weakness and would drop objects prior to his surgery, and this improved following surgery. No worsening in clumsiness. No nighttime symptoms. He says he did not have a NCS done prior to his initial surgery. He works as a truck shop supervisor [facility] Medical History (Updated 10/31/23 @ 14:47 by Janelle Bolton) Urinary hesitancy Surgical History History of lumbar surgery Hx of carpal tunnel repair Family History Mother DMII (diabetes mellitus, type 2) HTN (hypertension) Father HTN (hypertension) Social History Housing: Apartment Alcohol intake: current Alcohol intake frequency: holidays/special occasions only Alcohol type: beer Patient Tobacco Use Status: Former Tobacco user Quit Date: 2018 Tobacco use type: Cigarette e-Cigarette/Vaping Use: Never Used Second Hand Smoke Exposure: Yes service: No Current occupational status: employed Current occupation: [employer] Cognitive needs: No Hearing needs: No Vision needs: Yes Review of Systems Const All systems reviewed & are unremarkable except as noted in HPI and below Physical Exam Vital Signs: BMI result Body Mass Index 41.7 Const General: cooperative, healthy appearing and no acute distress Orientation/consciousness: patient oriented x3 HEENT Head: Yes normocephalic and Yes atraumatic Eyes EOM: EOMs intact bilaterally Resp Effort & Inspection: normal respiratory effort and able to speak in complete sentences Cardio Jugular venous distension: no JVD Skin General skin exam: turgor normal Rashes: no rashes Neuro General: patient oriented x3 Extrem Other: Evaluation of Bilateral Upper Extremity: The patient is alert, oriented, and in no acute distress Neuro: Dense numbness in the median nerve distribution bilaterally. More normal sensation in the ulnar nerve distribution bilaterally. No thenar or intrinsic wasting Good APB muscle belly firing and good finger cross Vascular: Cap refill brisk ROM: He can make a fist and extend all his digits Skin: No lacerations or abrasions. General: No Ecchymosis. No Erythema or evidence of infection. Nerve Conduction Study: IMPRESSION: 1. This is an abnormal study. 2. There is electrodiagnostic evidence for bilateral moderate-severe median neuropathy at the wrist, consistent with carpal tunnel syndrome. 3. There is no electrodiagnostic evidence for ulnar neuropathy, brachial plexopathy, or cervical radiculopathy. CLINICAL COMMENT: Unfortunately patient did not have EMG prior to surgery, no comparison available.. Lesly Garza MD, RYLEE 09/28/23 Psych Appearance: grossly normal Affect: normal affect Attitude: cooperative Assessment & Plan Assessment & Plan (1) Right carpal tunnel syndrome: Code(s): G56.01 - Carpal tunnel syndrome, right upper limb Category: Medical (2) Left carpal tunnel syndrome: Code(s): G56.02 - Carpal tunnel syndrome, left upper limb Category: Medical (3) History of carpal tunnel release of both wrists: Code(s): Z98.890 - Other specified postprocedural states Category: Surgical Plan Assessment & Plan: 1. Right carpal tunnel syndrome, moderate-severe Hx of carpal tunnel release in ~2019 at an outside clinic With dense numbness that did not change following his surgery No thenar wasting, no worsening clumsiness, no increase in painful symptoms 2. Left carpal tunnel syndrome, moderate-severe Hx of carpal tunnel release in ~2019 at an outside clinic With dense numbness that did not change after his surgery No thenar wasting, no worsening clumsiness, no increase in painful symptoms I educated him about this condition I had a long discussion with him. Given that he did not have any improvement in his symptoms following the 1st surgery, and and that his sensation has not changed in the interim, I do not believe that a repeat carpal tunnel release would improve his sensation. I explained that a steroid injection also would not improve his sensation, which he asked about. He denies having painful symptoms in the volar aspect of his wrist or any increase in clumsiness at this time. I did explain that in the future if he develops such symptoms, or should start developing numbness in the small fingers that we could then repeat his nerve conduction study and compare it to the 1 that was just done, which could be used as a baseline. We can then consider treatment options which may include surgery. He feels like he has a better understanding of the situation, and is happy with the current plan. Please note that greater than 30 minutes was spent with this patient going over the history, evaluating the patient and radiographs, formulating possible treatment options, discussing them with the patient, and documenting the visit. Scribed for Adriana Urban MD by Lyndon Mccall, medical records supervisor, on 12/06/23 at 12:45 PM, EST. Coding Level of Care Code Est Pt Level 4 (77862) Diagnoses Right carpal tunnel syndrome G56.01 Left carpal tunnel syndrome G56.02 History of carpal tunnel release of both wrists Z98.890
== END 2023-12-06 13:11 | disposition home or self-care (01) ==
PROVIDERS: PCP Physician Assistant; Visit Provider Orthopaedic Surgery
DX: G56.03 Carpal tunnel syndrome, bilateral upper limbs (principal)
CPT/HCPCS: 99214

== ENCOUNTER → 2023-12-06 12:23 | Outpatient (BNVA) | payer BC, SELFPAY | PROVIDERS: PCP Physician Assistant; Visit Provider Orthopaedic Surgery ==

== ENCOUNTER 2024-01-05 05:47 | Day surgery (SDC) | payer BC, SELFPAY ==
[2024-01-03 14:36] VITALS: BMI 40.8
--- NOTE | 2024-01-04 09:29 | P.CONAN_ITS ---
Documented by User: Rabia Abrams NP 01/04/24 09:29 HPI - Anesthesia Eval Consult details Narrative: 48yo M for Upper Endoscopy and Colonoscopy [facility] Active Problems Active Problems: All Active Problems History of carpal tunnel release of both wrists (Acute) Left carpal tunnel syndrome (Acute) Right carpal tunnel syndrome (Acute) Erectile dysfunction (Acute) Gastritis (Acute) Herpes simplex (Acute) Carpal tunnel syndrome on both sides (Acute) Dysphagia (Acute) Colon cancer screening (Acute) Bilateral knee pain (Acute) HLD (hyperlipidemia) (Acute) ELIZABETH (obstructive sleep apnea) (Acute) HTN (hypertension) (Acute) Obesity (Acute) Constipation (Acute) Urinary hesitancy (Acute) Past Medical History Medical History (Updated 01/04/24 @ 09:30 by Rabia Abrams NP) Obesity ELIZABETH (obstructive sleep apnea) HTN (hypertension) HLD (hyperlipidemia) GERD (gastroesophageal reflux disease) Urinary hesitancy Family History Family History Mother DMII (diabetes mellitus, type 2) HTN (hypertension) Father HTN (hypertension) Surgical History Surgical History (Updated 01/03/24 @ 14:32 by Rupali Obrien RN) History of back surgery History of lumbar surgery Hx of carpal tunnel repair Social History Social History Housing: Apartment Alcohol intake: current Alcohol intake frequency: a few times a month Alcohol type: beer Patient Tobacco Use Status: Former Tobacco user Tobacco use type: Cigarette e-Cigarette/Vaping Use: Never Used Second Hand Smoke Exposure: Yes Use of substances other than those prescribed or required for medical reasons: No Are you DNR?: No Advance Directives: No Advance Directives Information Provided: Yes service: No Current occupational status: employed Current occupation: [employer] Cognitive needs: No Hearing needs: No Vision needs: Yes Meds Allergies Allergy/AdvReac Type Severity Reaction Status Date / Time No Known Allergies Allergy Verified 01/05/24 06:01 Exam Height,Weight and Vital Signs: Height 6 ft 4 in Weight 151.953 kg Assessment and Plan Assessment Anesthesia Assessment: Chart Reviewed Documented by User: Luis E Webber MD 01/05/24 07:13 [facility] Past Medical History Medical History (Updated 01/04/24 @ 09:30 by Rabia Abrams NP) Obesity ELIZABETH (obstructive sleep apnea) HTN (hypertension) HLD (hyperlipidemia) GERD (gastroesophageal reflux disease) Urinary hesitancy Family History Family History Mother DMII (diabetes mellitus, type 2) HTN (hypertension) Father HTN (hypertension) Family history of problems with anesthesia: No Surgical History Surgical History (Updated 01/03/24 @ 14:32 by Rupali Obrien RN) History of back surgery History of lumbar surgery Hx of carpal tunnel repair History of Problems with Anesthesia: No Social History Social History Housing: Apartment Alcohol intake: current Alcohol intake frequency: a few times a month Alcohol type: beer Patient Tobacco Use Status: Former Tobacco user Tobacco use type: Cigarette e-Cigarette/Vaping Use: Never Used Second Hand Smoke Exposure: Yes Use of substances other than those prescribed or required for medical reasons: No Are you DNR?: No Advance Directives: No Advance Directives Information Provided: Yes service: No Current occupational status: employed Current occupation: [employer] Cognitive needs: No Hearing needs: No Vision needs: Yes Meds Allergies Allergy/AdvReac Type Severity Reaction Status Date / Time No Known Allergies Allergy Verified 01/05/24 06:01 Exam Airway Mallampati Class: I TM Dist: >3cm Neck ROM: Full Loose/Missing/Broken Teeth: No Heart: rrr Lungs: cta Assessment and Plan Assessment Anesthesia Assessment: Anesthesia Plan Discussed Final Anesthetic Review Family History of Problems with Anesthesia: No History of Problems with Anesthesia: No NPO: Yes ASA Class: III Final Preanesthetic Review: No Changes in Pt Med Stat, Meds/Allgs Chart Reviewed, Consent Obtained/Reviewed and Anes Risks/Benef Reviewed Patient Risk: Intermediate Procedure Risk: Intermediate Anesthetic Plan Anesthetic Plan: TIVA Disposition: Standard PACU
[2024-01-05 05:55] VITALS: BMI 39.6
[2024-01-05 06:18] VITALS: BP 129/99; PULSE 88; RESP 16; TEMP 36.3; O2SAT 97
[2024-01-05] MEDS: Lactated Ringers 1,000 ML 100 ML IVCONT (06:29)
--- NOTE | 2024-01-05 07:29 | P.HPSUR_ITS ---
Pre-Procedural Eval Section A - 24 Hr Update-Section A only Date of Service: 01/05/24 Section B - Complete if H&P > 30 days Chief Complaint: Abnormal findings on diagnostic imaging of other p Details of Present Illness: see H*P no changes Relevant Family History (Specify if Yes): No Relevant Social History: None Present Medications: see Short Stay Collaborative assessment Medical History: No relevant PMH History of Previous Operations: No relevant previous surgery Allergies: Allergies Allergy/AdvReac Type Severity Reaction Status Date / Time No Known Allergies Allergy Verified 01/05/24 06:01 Review of Systems Sugical H&P ROS: Negative: Constitution, Cardiovascular, Respiratory, Neurological, Psychiatric, Hem-Onc, Allergic/Immunologic, Gastrointestinal, Genitourinary, Musculoskeletal, Integumentary, Endocrine and Eyes/Ears/N ose/Throat Exam Surgical H&P Exam: Normal: HEENT, Normal: Heart, Normal: Lungs, Normal: Extremities, Normal: Abdomen, Normal: Skin and Normal: Neurological Plan Diagnosis/Plan: Unchanged I have reviewed the history and physical and performed a pertinent physical examination on my patient. No changes have occurred unless specified. Time Spent With Patient Time: Total time managing care of this patient today ____ minutes.
[2024-01-05 08:24] VITALS: BP 122/92; PULSE 90; RESP 16; TEMP 37.3; O2SAT 100
[2024-01-05 08:51] VITALS: BP 137/95; PULSE 71; RESP 18; TEMP 36.3; O2SAT 99
--- NOTE | 2024-01-05 09:33 | OP_ITS ---
DATE OF SERVICE: 01/05/2024 SURGEON: You Gonzalez MD INDICATIONS: 1. Abnormal barium swallow. 2. Dysphagia. 3. Colon cancer screening. PREOPERATIVE DIAGNOSIS: POSTOPERATIVE DIAGNOSIS: PROCEDURE PERFORMED: Upper endoscopy with biopsy, colonoscopy to the terminal ileum. ESTIMATED BLOOD LOSS: COMPLICATIONS: ANESTHESIA: Monitored anesthesia care. ASSISTANTS: SPECIMENS: DESCRIPTION OF PROCEDURE: A history and physical was performed. The risks and benefits of the procedure were explained to the patient and informed consent was obtained. The patient was placed in the left lateral decubitus position. The Olympus video gastroscope was introduced into the esophagus, stomach, and duodenum. Examination was performed and the scope was removed. He tolerated the procedure well. He was repositioned for colonoscopy. A digital rectal exam was performed and was found to be normal. The Olympus pediatric video colonoscope was introduced into the rectum and advanced to the cecum. The cecum was identified by transillumination, palpation, and identification of ileocecal valve. Examination was performed and the scope was removed. He tolerated the procedure well and was returned to the recovery area in stable condition. FINDINGS: Upper endoscopy, esophagus: The esophagus was normal. Biopsies were obtained from the EG junction. There was no esophagitis. Stomach: The stomach showed no evidence of masses, ulcers, or polyps. Antral biopsies were obtained to evaluate for H pylori. Duodenum: The bulb and 2nd portion were normal. Colonoscopy: The terminal ileum was examined and appeared normal. The visualized colonic mucosa was normal. The quality of the prep was good. No polyps were identified. There was moderate sigmoid diverticulosis. Retroflexed examination showed moderate-sized internal hemorrhoids. IMPRESSION: 1. Gastroesophageal reflux disease. 2. Normal colonoscopy. RECOMMENDATIONS: 1. Follow up the biopsy results. 2. Repeat colonoscopy is recommended in 10 years for average-risk individuals. MD DUY Camilo/KENISHA / [id number]
== END 2024-01-05 09:25 | disposition home or self-care (01) ==
PROVIDERS: PCP Physician Assistant; Visit Provider Internal Medicine Gastroenterology
PROC: (CPT 45378; principal; 2024-01-05 07:30)
DX: Z12.11 Encounter for screening for malignant neoplasm of colon (principal); K57.30 Diverticulosis of large intestine without perforation or abscess without bleeding; K64.8 Other hemorrhoids; R93.3 Abnormal findings on diagnostic imaging of other parts of digestive tract; R13.19 Other dysphagia; K21.9 Gastro-esophageal reflux disease without esophagitis; K29.50 Unspecified chronic gastritis without bleeding; B96.81 Helicobacter pylori [H. pylori] as the cause of diseases classified elsewhere; I10 Essential (primary) hypertension
CPT/HCPCS: 45378; 43239; 88305; 88313; 88342; J1596; J2704

== ENCOUNTER 2024-10-02 08:55 | Outpatient (AMB) | payer BC, SELFPAY ==
[2024-10-02 09:21] VITALS: BP 140/100; PULSE 77; TEMP 36.3; O2SAT 97; BMI 41.0
--- NOTE | 2024-10-02 09:21 | MHC.PC.OV ---
Vital Signs 10/02/24 09:21 Height 6 ft 4 in Weight 337 lb 4 oz BMI 41.0 BP 140/100 H Blood Pressure Location Lt brachial Position Sitting Pulse 77 Pulse Source Pulse Oximeter Temp 97.3 F Temp Source Temporal Artery Scan Pulse Oximetry (%) 97 Oxygen Delivery Method Room Air Intake Visit Reasons: mMed Review and Lab Results Program Advisor Required: No Accompanied by: Self / Same As Patient Allergies No Known Allergies Allergy (Verified 10/02/24 09:26) Medication List - Last Reconciled 10/02/24 by Khari Lyles PA-C amlodipine 5 mg PO DAILY blood pressure kit-extra large As directed omeprazole 20 mg PO DAILY 90 days Tobacco use date assessed: 10/02/24 Dental Screening Dental Screen Date: 10/02/24 Did you have a dental visit in the last 12 months?: Yes Did you have a dental problem in the last 6 months where you did not have access to dental care?: No Was dental information given to patient?: Patient has dentist HPI mMed Review and Lab Results HPI Details Patient is a 49 year male here today for a follow-up visit. patient has a past medical history significant for obesity hypertension, obstructive sleep apnea, chronic constipation Concern--> interested in getting STD screening.. Chronic constipation: Reports having constipation over the last year . Need to take stool softner / laxative to use the bathroom. Reports he can go week without using the bathroom. Often has to strain well passing stool. Denies any blood per rectum. 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 He has been using a new supplement that has fiber and probiotics which has offered him relief of his constipation. . Obesity: Unfortunately has gained weight since last office visit. 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 He is interested in starting a GLP 1 that will help him lose weight. He does also have comorbidity of obstructive sleep apnea though was not using a CPAP machine at this time. PLAN: Will start zepbound to help reduce his weight and help him with his obstructive sleep apnea. He will start being more physically active and trying to adapt to better eating habits to also lose weight. Colonoscopy and endoscopy were recommended. Patient has been started on PPI therapy. .. hypertension: blood pressure elevated today in office., consistently taking amlodipine 5 mg.. Denies headaches, chest discomforts or shortness of breath on exertion. PLAN: Will increase his amlodipine to 10 mg for better blood pressure control .. Hyperlipidemia: most recent fasting lipid panel showing total cholesterol at 245, LDL at 160 PLAN: Will work on lifestyle to be more physically active to reduce his weight and reduce his high cholesterol foods in his diet. [facility] Medical History (Updated 10/02/24 @ 09:35 by Khari Lyles PA-C) ELIZABETH (obstructive sleep apnea) HTN (hypertension) Obesity HLD (hyperlipidemia) GERD (gastroesophageal reflux disease) Urinary hesitancy Surgical History History of back surgery History of lumbar surgery Hx of carpal tunnel repair Family History Mother DMII (diabetes mellitus, type 2) HTN (hypertension) Father HTN (hypertension) Social History Housing: Apartment Alcohol intake: current Alcohol intake frequency: a few times a month Alcohol type: beer Patient Tobacco Use Status: Former Tobacco user Tobacco use type: Cigarette e-Cigarette/Vaping Use: Never Used Second Hand Smoke Exposure: Yes service: No Current occupational status: employed Current occupation: DRIVE TRUCK Cognitive needs: No Hearing needs: No Vision needs: Yes Questionnaire PHQ-9 Over the last 2 weeks, how often have you been bothered by any of the following problems? 1. Little interest or pleasure in doing things: not at all 2. Feeling down, depressed, or hopeless: not at all 3. Trouble falling or staying asleep, or sleeping too much: not at all 4. Feeling tired or having little energy: not at all 5. Poor appetite or overeating: not at all 6. Feeling bad about yourself - or that you are a failure or have let yourself or your family down: not at all 7. Trouble concentrating on things, such as reading the newspaper or watching television: not at all 8. Moving or speaking so slowly that other people could have noticed. Or the opposite - being so fidgety or restless that you have been moving around a lot more than usual: not at all 9. Thoughts that you would be better off or of hurting yourself in some way: not at all Total score: 0 Depression Screening Interpretation: Negative Depression Screening Done: Yes 62208 - PHQ-9 Billing: Yes Source: Developed by Drs. Enrico Herron, Jenise De La Rosa, Troy Alamo and colleagues, with an educational mayur from [employer]. Thrive Questionnaire Date Thrive assessed: 10/02/24 I am a: Patient What is your living situation today?: I have a steady place to live Within the past 12 months, did the food you bought not last and you didn't have the money to get more?: Never true Within the past 12 months, did you worry whether your food would run out before you got money to buy more?: Never true Do you have trouble paying for medicines?: No Do you have trouble getting transportation to medical appointments?: No Do you have trouble paying your heating and electricity bill?: No Do you have trouble taking care of your child, family member or friend?: No Do you have trouble with day-to-day activities such as bathing, preparing meals, shopping, managing finances, etc.?: No Are you currently unemployed and looking for a job?: No Are you interested in more education?: No Please select the resources that you would like help with: None Currently or been in a relationship where the following occur: No concerns reported THRIVE Score: 0 AUDIT C Alcohol Use Questionnaire (AUDIT-C) 1. How often do you have a drink containing alcohol?: 4 or more times a week 2. How many drinks containing alcohol do you have on a typical day when you are drinking?: 5 or 6 3. How often do you have six or more drinks on one occasion?: Never Total Score: 6 KHOI-7 AMB Questionnaire KHOI-7 Date KHOI - 7 assessed: 10/02/24 Feeling nervous, anxious, or on edge: 0 = Not at all Not being able to stop or control worryin = Not at all Worrying too much about different things: 0 = Not at all Trouble relaxin = Not at all Being so restless that it is hard to sit still: 0 = Not at all Becoming easily annoyed or irritable: 0 = Not at all Feeling afraid as if something awful might happen: 0 = Not at all Total KHOI-7 score (0-4 normal; 5-9 mild; 10-14 moderate; 15-21 severe): 0 Source: Developed by Drs. Enrico Herron, Jenise De La Rosa, Troy Alamo and colleagues, with an educational mayur from [employer]. KHOI-7 Assessment Billing KHOI-7 Assessment Tool: KHOI-7 Assessment 13156 Review of Systems Const Denies headache(s) Eyes Denies loss of vision ENT Denies vertigo, Denies dizziness, Denies headache(s) and Denies sore throat Card Denies chest pain, Denies leg edema and Denies lightheadedness Resp Denies cough, Denies hemoptysis and Denies wheezing GI Denies abdominal pain, Denies melena, Denies constipation, Denies diarrhea and Denies vomiting Denies dysuria, Denies urinary frequency and Denies urinary urgency Musc Denies arthralgias, Denies joint swelling, Denies numbness and Denies tingling Neuro Denies Abnormal speech present, Denies behavioral changes, Denies vertigo, Denies dizziness, Denies headache(s), Denies loss of vision, Denies memory loss, Denies numbness and Denies tingling Psych Denies anxiety, Denies behavioral changes, Denies depression, Denies memory loss and Denies panic attacks Cheikh/Lymph Denies easy bleeding and Denies easy bruising Aller/Immun Denies wheezing Physical exam (Primary Care) Vital Signs: Last Vital Signs Temp 97.3 F 10/02/24 09:21 Pulse 77 10/02/24 09:21 BP 140/100 H 10/02/24 09:21 Pulse Ox 97 10/02/24 09:21 Oxygen Delivery Method Room Air 10/02/24 09:21 BMI result Body Mass Index 41.0 BMI Assessment/Plan discussion: High BMI High, discussed plan: lifestyle, weight reduction, dietary and physical activity Tobacco/Smoking Status: Tobacco use Status Tobacco use date assessed 10/02/24 10/02/24 09:27 Patient Tobacco Use Status Former Tobacco user 10/02/24 09:23 Tobacco use type Cigarette 10/02/24 09:23 e-Cigarette/Vaping Use Never Used 10/02/24 09:23 PHQ-9: PHQ-9 Score PHQ-9: Total score 0 10/02/24 09:27 Depression Screening Interpretation: Negative Thrive Assessment: Date of Thrive Assessment Date Thrive assessed 10/02/24 10/02/24 09:27 Currently or been in a relationship where the following occur: No concerns reported Const General: healthy appearing, no acute distress, alert and awake Nutritional Appearance: well nourished Orientation/consciousness: oriented to person, oriented to place and oriented to time HENMT Ears: TM's normal bilaterally General nose exam: Normal nasal mucous membranes and turbinates present Eyes Conjunctivae: conjunctivae normal Sclerae: sclerae normal Pupils: Equal, round and reactive pupils present Neck Neck: Yes no lymphadenopathy and Yes no JVD Thyroid: Thyroid normal Carotids: no bruits Resp Effort & Inspection: normal respiratory effort and not tachypneic Auscultation: no crackles, no rales, no rhonchi and no wheezes Cardio Rate: regular rate Rhythm: regular rhythm Heart sounds: no murmurs and normal S1 and S2 GI Palpation (GI): Soft to palpation, nontender, no hepatomegaly and no splenomegaly Auscultation: normal bowel sounds Skin General skin exam: no rashes or lesions noted and dry skin Neuro General: oriented to person, oriented to place and oriented to time Cranial nerves: Yes Equal, round and reactive pupils present Speech: No Abnormal speech present Gait exam (Neuro): Normal gait present Motor exam (neuro): no tremor noted Extrem Right upper extremity: full ROM Left upper extremity: full ROM Right lower extremity: full ROM; no edema Left lower extremity: full ROM; no edema Psych Mental Status: mental status grossly normal Speech and movement: Normal speech and movement present Affect: normal affect Attitude: cooperative Thought process: Normal thought process present Coding Level of Care Code Est Pt Level 4 (74638) Diagnoses Primary hypertension I10 Hypertension type: primary hypertension Class 3 obesity E66.813 ELIZABETH (obstructive sleep apnea) G47.33 Additional Codes KHOI-7 Assessment Billing - KHOI-7 Assessment Tool: KHOI-7 Assessment 69968 ([id number]) PHQ-9 - 48587 - PHQ-9 Billing: Yes ([id number]) Assessment & Plan Assessment & Plan (1) HTN (hypertension): Code(s): I10 - Essential (primary) hypertension Category: Medical Qualifiers: Hypertension type: primary hypertension Qualified Code(s): I10 - Essential (primary) hypertension Plan: Patient's blood pressure elevated today in office. He has gained weight since last office visit. He is consistent with his amlodipine. Will increase his amlodipine to maximum dose of 10 mg for better blood pressure control. Advised to continue monitoring blood pressure with goal blood pressure to be below 40/90 (2) Class 3 obesity: Code(s): E66.813 - Obesity, class 3 Category: Medical Plan: Patient does understand his BMI is over 40 and will like to started GLP 1 to help him with his weight and his obstructive sleep apnea. We did discuss the possibility of insurance not covering and he does understand. Will start zepbound and up titrate per protocol. will see patient back in 6 weeks to evaluate for effectiveness of the medication. (3) ELIZABETH (obstructive sleep apnea): Code(s): G47.33 - Obstructive sleep apnea (adult) (pediatric) Category: Medical Plan: Patient does have obstructive sleep apnea and was on CPAP machine in the past. He was interested in starting zepbound to help him with his obstructive sleep apnea as well. Orders: Orders HIV Ab/Ag 10/02/24 N52.9 - Male erectile dysfunction, unspecified, Z11.3 - Encounter for screening for infections with a predominantly sexual mode of transmission CT NG by PCR 10/02/24 Z20.2 - Contact with and (suspected) exposure to infections with a predominantly sexual mode of transmission Microalbumin, Random (w Creat) 10/02/24 I10 - Essential (primary) hypertension Complete Blood Count no Diff 10/02/24 I10 - Essential (primary) hypertension Syphilis Screen 10/02/24 N52.9 - Male erectile dysfunction, unspecified, Z11.3 - Encounter for screening for infections with a predominantly sexual mode of transmission Hepatitis B,C Profile 10/02/24 N52.9 - Male erectile dysfunction, unspecified, Z11.3 - Encounter for screening for infections with a predominantly sexual mode of transmission UA CC w/rflx Micro + Cult 10/02/24 R30.0 - Dysuria, R39.11 - Hesitancy of micturition Prostate Specific Antigen Scr 10/02/24 I10 - Essential (primary) hypertension, Z12.5 - Encounter for screening for malignant neoplasm of prostate Comprehensive [place]. Panel Fast 10/02/24 I10 - Essential (primary) hypertension Medications: New amlodipine 10 mg PO DAILY 90 tabs 1RF 90 days I10 - Essential (primary) hypertension tirzepatide (weight loss) (Zepbound) for 4 weeks 2.5 mg (0.5 mL) subcut QWEEK 2 mL 0RF 4 weeks E66.813 - Obesity, class 3, G47.33 - Obstructive sleep apnea (adult) (pediatric) On Hold amlodipine Hold Comment: Doctor's Order 5 mg PO DAILY 90 tabs 2RF R39.11 - Hesitancy of micturition Patient Instructions: Goal: Blood pressure to be below 140/90, lose weight. Barriers: Adherence to physical activity and healthy eating habits
--- OUTSIDE RECORDS SUMMARY | 2024-10-02 09:41 | XMS_ITS | Clinical Summary ---
Author Organization [facility] it Address [address] [place] [address] Care Team Providers Care Event Sales Manager Name Role Phone Aiden Bey MD Primary Care Provider [phone] Allergies No known active allergies Medications cyclobenzaprine (FLEXERIL) 10 mg tablet Active indomethacin (INDOCIN) 50 mg capsule Active Active Problems Problem Noted Date Diagnosed Date Seizure in childhood 08/08/2024 Herpes simplex 08/08/2024 Knee pain 08/08/2024 Tobacco use disorder 08/08/2024 Lumbago 08/08/2024 Immunizations Name Administration Dates Next Due Tdap Tetanus diptheria acell ular pertussis (Boostrix; Adacel) 7yo and older 11/28/2006 Medical History Medical History Date Comments Other convulsions 12/01/2006 DX:Other convu lsions Lumbago 12/23/2009 DX:Lumbago Family History Medical History Relation Name Comments Diabetes Other 1 Hypertension Other 2 Relation Name Status Comments Other 1 Other 2 Other 3 Social History Tobacco Use Types Packs/Day Years Used Date Smoking Tobacco: Every Day Cigarettes Alcohol Use Standard Drinks/Week Comments Yes 0 (1 standard drink = 0.6 oz pur e alcohol) Sex and Gender Information Value Date Recorded Sex Assigned at Not on file Legal Sex Male 9:49 AM EST Gender Identity Not on file Sexual Orientation Not on file Obstetrics History Plan of Treatment Health Maintenance Due Date Last Done Comments Hepatitis B Vaccines (1 of 3 - 19+ 3-dose series) 1992 Pneumococcal Vaccine: 50+ Ye ars (1 of 2 - PCV) 1992 Pneumococcal Vaccine: Pediat rics (0 to 5 Years) and At-Risk Patients (6 to 64 Years) (1 of 2 - PCV) 1992 DTaP,Tdap,and Td Vaccines (2 - Td or Tdap) 11/28/2016 11/28/2006 Zoster Vaccines (1 of 2) 2023 COVID-19 Vaccine (1 - 2023-2 5 season) 2024 Influenza Vaccine (#1) 2024 Cholesterol Screening (Lipid Panel) 08/09/2024 07/03/2003 Colorectal Cancer Screening: Colonoscopy 08/09/2024 Depression Screening 08/09/2024 HIV Screening 08/09/2024 Social Influencers of Health Screening 08/09/2024 Hepatitis C Screening Completed 06/14/2001 HIB Vaccines Aged Out No longer eligi ble based on patient's age to complete this topic HPV Vaccines Aged Out No longer eligi ble based on patient's age to complete this topic Hepatitis A Vaccines Aged Out No long er eligible based on patient's age to complete this topic IPV Vaccines Aged Out No longer eligi ble based on patient's age to complete this topic MMR Vaccines Aged Out No longer eligi ble based on patient's age to complete this topic Meningococcal ACWY Vaccine Aged Out N o longer eligible based on patient's age to complete this topic Meningococcal B Vacine Aged Out No lo nger eligible based on patient's age to complete this topic RSV Immunization Patients Un jennifer 20 months Aged Out No longer eligible b ased on patient's age to complete this topic Varicella Vaccines Aged Out No longer eligible based on patient's age to complete this topic Procedures Procedure Name Priority Date/Time Associated Diagnosis Comments LIPID PANEL Routine 07/03/2003 HEPATITIS C SCREENING Routine 06/14/2001 from Last 3 Months or Most Recently Relevant to Health Maintenance Results * (ABNORMAL) Lipid panel (07/03/2003) Cholesterol 210(A) <=200 mg/dL Blood Venous blood specimen / Unknown us Historical Provider LAB BLOOD ORDERABLES Arabella l Result * Hepatitis C Screening (06/14/2001) Pathologist [facility] Hepatitis C Screening abstracted us Historical Provider HEALTH MAINTENANCE Final Result from Last 3 Months or Most Recently Relevant to Health Maintenance Care Teams Event Sales Manager Relationship Specialty Start Date End Date Aiden Bey MD [address] [place] [address] [place] [address] PCP - General 11/05/99
--- OUTSIDE RECORDS SUMMARY | 2024-10-02 09:41 | XMS_ITS | Patient Health Record ---
Author Organization [facility] Address [address] [place] [address] Care Team Providers Care Media Analytics Manager Name Role Phone Khari Lyles Primary Care Provider Unavailab You Marrufo Jr Unavailable [phone] Allergies No Known Allergies Results Component Value Reference Range Notes Pathology Reviewed date:01/11/2024 09:18:29 AM Interpretation: Performing Lab:[facility], [address] [place] [phone] Notes/Report: Name: Mukul Huggins Age/Sex: 48/M : 1975 Unit#: [id number] Attend Dr: You Gonzalez MD Re01/05/24 Status : [facility] Location: [place] Disch: SPEC : [id number] RECD : 01/05/24 STATUS: BONILLA SAGE NUM: [id number] CRISTINO: 01/05/[address] [facility] [address]: You Gonzalez MD ENTERED: 01/05/24-04 03 SP TYPE: Surgical OTHR DR: Khari Lyles PA-C ORDERED: HE Stain/6, Gross Micro L4/2, IHC, Special st. 2/2, H. pylori, AB/PAS/2 Diagnosis A. Gastric antrum, b iopsy: Chronic Helicobacter gastritis with mild activity; negative for intestinal metap lasia and dysplasia. B. Esophagogastric junction, biopsy: Squamous mucosa with hyperplasia and mild spongiosis, and colu mnar mucosa with moderate chronic inflammation, compatible with esophagitis; negativ e for intestinal metaplasia adn dysplasia. Clinical History Pre-Op Dx: Abnormal imaging Post-Op Dx: GERD Microscopic Description Microscopic sections reviewed. Immunostain for H. pylori on A is positive; AB/PAS on A and B are negative for i ntestinal metaplasia. Controls stain appropriately. Material Received A. Antral bx's B. EG junction Gross Description Received in two parts. Part A: Received in formalin labeled ?antral bx's? are 2 shin-pink irregular and rectangular tissue fragments jenniffer suring 0.2 and 0.35 cm, submitted in toto in a cassette labeled A. Part B: Received in formalin labeled ?EG junction? are 2 molina-shin rectangular tissue fragments each measu ring 0.5 cm, submitted in toto in a cassette labeled B. CEDS Special studies orde red and performed: Immunostain for H. pylori on A1; AB/PAS stains on A1 and B1. CONTINUED ON NEXT PAGE Name: Mukul Huggins Age/Sex: 48/M : 1975 Unit#: [id number] Attend Dr: You Gonzalez MD Re01/05/24 Status : [facility] Location: [place] Disch: SPEC : [id number] RECD : 01/05/24 STATUS: BONILLA SAGE NUM: [id number] CRISTINO: 01/05/[address] [facility] [address]: You Gonzalez MD ENTERED: 01/05/24-04 03 SP TYPE: Surgical OTHR DR: Khari Lyles PA-C ORDERED: HE Stain/6, Gross Micro L4/2, IHC, Special st. 2/2, H. pylori, AB/PAS/2 Copies To: You Gonzalez MD [address] [place] [address] [address] [place] [address] Khari Lyles PA-C [address] [place] [address] [address] [place] [address] Signed (si gnature on file) Tuyet Stephen 01/10/24 0942 END OF REPORT Reason For Referral No Information Medications Medication SIG (Take, Route, Frequency, Duration) Notes Start Date End Date Status Omeprazole 20 MG Oral for 30 A ctive amLODIPine Besylate 5 MG Oral for 30 Active Immunizations Vaccine Route Administration Date Status Comme nts Influenza Unknown 11/06/2023 Refused Social History Tobacco Use: Social History Observation Description Date Details (start date - stop date) Never Smoker NA - NA Tobacco Use/Smoking Question Answer Notes Patient is a nonsmoker Alcohol Screen Question Answer Notes Did you have a drink contain ing alcohol in the past year? Yes How often did you have a dri nk containing alcohol in the past year? 2 to 3 times a week (3 points) How many drinks did you have on a typical day when you were drinking in the past year? 3 or 4 drinks (1 point) How often did you have 6 or more drinks on one occasion in the past year? Never (0 point) Points 4 Interpretation Positive Problems Problem Type SNOMED Code ICD Code Onset Dates Problem Status W/U Status Risk Notes Problem [id number] Colon cancer screening (Z12.11) Active confirmed Problem 919452029 Abnormal barium swallow (R93.3) Active confirmed Problem 34597065 Esophageal dysphagia (R13.19) Active confirmed Vital Signs Temperature 97.8 degrees Fahrenheit 11/06/2023 Blood pressure diastolic 00 mm Hg 11/06/2023 Height 6 ft 4 in in 11/06/2023 Blood pressure systolic 000 mm Hg 11/06/2023 Weight 335 lb 2 oz lbs 11/06/2023 BMI 40.79 kg/m2 11/06/2023 Encounters Encounter Location Date Provider Diagnosis [facility] Outpatient [address] [place] [phone] 01/05/2024 You Gonzalez Jr Encounter for screening colonoscopy Z12.11 ; Abnormal barium swallow R93.3 and Other dysphagia R13.19 [facility] [address] [place] [address] 11/06/2023 You Gonzalez Jr Abnormal barium swallow R93.3 ; Colon cancer screening Z12.11 and Esophageal dysphagia R13.19 [facility] [address] [place] [address] 11/06/2023 You Gonzalez Jr [facility] [address] [place] [address] 01/11/2024 You Gonzalez Jr Assessments Encounter Date Diagnosis (ICD Code) Assessment Notes Treatment Notes Treatment Clinical Notes Section Notes 01/05/2024 Encounter for screening colonoscopy (ICD-10 - Z12.11) 01/05/2024 Abnormal barium swallow (ICD-10 - R93.3) 11/06/2023 Colon cancer screening (ICD-10 - Z12.11) We discussed his symptoms today. His reflux symptoms are under good control and we did recommend continuing omeprazole. His dysphagia is likely due to esophageal dysmotility based on his barium results. We reviewed this today. He will undergo upper endoscopy for further evaluation. For his constipation he should follow a high-fiber diet, and he can use MiraLax and Metamucil. We discussed how to titrate these today. Colonoscopy will be arranged. He is aware risks and benefits of both procedures and agrees to proceed. 11/06/2023 Abnormal barium swallow (ICD-10 - R93.3) Endoscopy material was printed We discussed his symptoms today. His reflux symptoms are under good control and we did recommend continuing omeprazole. His dysphagia is likely due to esophageal dysmotility based on his barium results. We reviewed this today. He will undergo upper endoscopy for further evaluation. For his constipation he should follow a high-fiber diet, and he can use MiraLax and Metamucil. We discussed how to titrate these today. Colonoscopy will be arranged. He is aware risks and benefits of both procedures and agrees to proceed. 01/05/2024 Other dysphagia (ICD-10 - R13.19) 11/06/2023 Esophageal dysphagia (ICD-10 - R13.19) We discussed his symptoms today. His reflux symptoms are under good control and we did recommend continuing omeprazole. His dysphagia is likely due to esophageal dysmotility based on his barium results. We reviewed this today. He will undergo upper endoscopy for further evaluation. For his constipation he should follow a high-fiber diet, and he can use MiraLax and Metamucil. We discussed how to titrate these today. Colonoscopy will be arranged. He is aware risks and benefits of both procedures and agrees to proceed. Plan Of Treatment Future Test Test Name Order Date UPPER GI ENDOSCOPY 11/06/2023 COLONOSCOPY 11/06/2023 Insurance Providers Payer Name Payer Address Payer Phone Subscriber Number Group Number Insured Name Patient Relationship to Insured Coverage Start Date Coverage End Date [facility] [address] [place] [address] [id number] MUKUL HUGGINS Self - patient is the insured Medical (General) History Medical History History ICD Code Hypertension Gastroesophageal reflux disease Elevated body mass index Surgical History Surgery Date(Month/Year) Back surgery 2018 Carpal tunnel repair 2019
--- OUTSIDE RECORDS SUMMARY | 2024-10-02 09:41 | XMS_ITS ---
Author Organization [facility] Address [address] [place] [address] Care Team Providers Care Grain Oilseed Or Pasture Farm Worker Name Role Phone Khari Lyles Primary Care Provider Unavailab You Marrufo Jr Unavailable [phone] REASON FOR VISIT pathology Encounters Encounter Location Date Provider Diagnosis [facility] [address] [place] [address] 01/11/2024 You Gonzalez Jr Plan Of Treatment No Information Progress Notes * TAMMY HUGGINSSDOB: [birth year] (48 yo M)Acc No.[id number]:01/11/2024 Patient:?MATY HUGGINS :1975???Age:48 Y???Sex:Male Address:[address] [place] [address] [address] [facility] , [place], [address] * true * Date:? Generated for Aric kay/Analisa/eTransmitting on:?10/02/2024 09:41 AM EST
--- OUTSIDE RECORDS SUMMARY | 2024-10-02 09:41 | XMS_ITS ---
Author Organization [facility] Address [address] [place] [address] Care Team Providers Care Certified Performance Technologist Name Role Phone Khari Lyles Primary Care Provider Unavailab You Marrufo Jr Unavailable [phone] REASON FOR VISIT screening, abnormal barium swallow Encounters Encounter Location Date Provider Diagnosis [facility] [address] [place] [phone] 01/05/2024 You Gonzalez Jr Encounter for screening colonoscopy Z12.11 ; Abnormal barium swallow R93.3 and Other dysphagia R13.19 Assessments Encounter Date Diagnosis (ICD Code) Assessment Notes Treatment Notes Treatment Clinical Notes Section Notes 01/05/2024 Encounter for screening colonoscopy (ICD-10 - Z12.11) 01/05/2024 Abnormal barium swallow (ICD-10 - R93.3) 01/05/2024 Other dysphagia (ICD-10 - R13.19) Plan Of Treatment No Information Progress Notes * TAMMY HUGGINSSDOB: [birth year] (49 yo M)Acc No.[id number]:01/05/2024 EGD&COL/MAC Patient:?MATY HUGGINS Provider:?You Gonzalez MD :1975???Age:48 Y???Sex:Male Umberto e:01/05/2024 Address:[address] [place] [address] , [facility] Pcp:Khari Lyles Subjective: * Chief Complaints: * ???1. Screening, abnormal ba rium swallow. * Medical History:? Objective: * Vitals:? Assessment: * Assessment: 1.?Encounter for screening c olonoscopy - Z12.11 (Primary)???2.?Abnormal barium swallow - R93.3???3.?Other dysphagia - R13.19??? Plan: * Treatment: * Procedure Codes:?66242 DIAGN OSTIC COLONOSCOPY, 0529F INTRVL 3+YRS PTS CLNSCP DOCD, 0528F RCMND FLW-UP 10 YRS DOCD, [address] UPPER GI ENDOSCOPY, BIOPSY * * The named appointment provid er may or may not be the originator of this progress note, and it is not deemed complete until electronically signed by the appointment provider. Sign off status: Pending * Provider:?You Gonzalez MD Date:?0 01/05/2024 Generated for Aric kay/Analisa/Tatyanaitting on:?10/02/2024 09:41 AM EST
--- OUTSIDE RECORDS SUMMARY | 2024-10-02 09:41 | XMS_ITS ---
Author Organization [facility] Address [address] [place] [address] Care Team Providers Care Art Objects Supervisor Name Role Phone Khari Lyles Primary Care Provider Unavailab You Marrufo Jr Unavailable REASON FOR VISIT prior authorization Encounters Encounter Location Date Provider Diagnosis [facility] [address] [place] [address] 11/06/2023 You Gonzalez Jr Plan Of Treatment No Information Progress Notes * TAMMY HUGGINSSDOB: [birth year] (48 yo M)Acc No.[id number]:11/06/2023 Patient:?MATY HUGGINS :1975???Age:48 Y???Sex:Male Address:[address] [place] [address] [address] [facility] , [place], [address] * true * Date:? Generated for Aric kya/Analisa/eTransmitting on:?10/02/2024 09:41 AM EST
--- OUTSIDE RECORDS SUMMARY | 2024-10-02 09:41 | XMS_ITS | Data Portability ---
Author Organization [facility] [address] Address [address] [place] [address] Assessment No assessment recorded. Plan of Treatment Reminders Order Date Submit Date Provider Last Modified By Organization Details Last Modified Time Details Appointments None record ed. Lab None record ed. Referral None record ed. Procedures None record ed. Surgeries None record ed. Imaging None record ed. Medication Orders None record ed. Patient TargetsNo targets recorded. Patient InstructionsNo instructions recorded. Reason for Referral None Reported. Procedures Surgical History Date Name Laterality Status Provider Name and Address Organization Details Recorded Time 3 OC-UDS Send Out Template DOT completed JUAN MIGUEL DIETRICH [place] - [facility] 03/13/2023 10:37:56 3 OC-UDS Send Out Template DOT completed Suzette Artis [place] - [facility] 11/12/2022 15:02:07 Imaging Results None recorded. Procedure Notes None recorded. Medical Equipment None Reported. Vitals None Recorded Social History None recorded. Functional Status None recorded. Mental Status None recorded. Family History Nothing Reported. Medical History No medical history recorded. Past Encounters Encounter ID Performer Location Encounter Start Date Encounter Closed Date Diagnosis/Indication Diagnosis SNOMED-CT Code Diagnosis ICD10 Code Diagnosis Note [id number] [address] [address] 03/04/2020 12:03:02 03/04/2020 13:38:25 [id number] FORTUNATO ALICEA [address] [facility] [address] [place] [address] 11/12/2022 14:43:13 11/12/2022 15:13:11 History and physical examination, occupation 778362780 Z02.1 [id number] [place] [address] [facility] [address] [place] [address] 03/13/2023 10:15:25 03/13/2023 10:39:47 History and physical examination, occupation 043137788 Z02.1 Health Concerns Section Related Observation LastModified by Organization Detai ls LastModified Time None Recorded Concern Status LastModified by Organization Details LastModified Time None Recorded Advance Directives Directive None Recorded Payers Encounter Date Sequence Insurance Name Policy Number Policy Doherty Covered Member ID Doherty Member ID Guarantor Name 11/12/2022 [employer]ES[employer] Escreen OTHER Th eodis White 03/13/2023 [employer]CRE[employer] Escreen OTHER Th eodis White
== END 2024-10-02 09:47 | disposition home or self-care (01) ==
PROVIDERS: PCP Physician Assistant; Visit Provider Physician Assistant
DX: I10 Essential (primary) hypertension (principal); E66.813 Obesity, class 3; Z68.41 Body mass index [BMI] 40.0-44.9, adult; G47.33 Obstructive sleep apnea (adult) (pediatric)

== ENCOUNTER → 2024-10-02 08:55 | Outpatient (BNVA) | payer BC, SELFPAY | PROVIDERS: PCP Physician Assistant; Visit Provider Physician Assistant | DX: I10 Essential (primary) hypertension (principal); E66.813 Obesity, class 3; Z68.41 Body mass index [BMI] 40.0-44.9, adult; G47.33 Obstructive sleep apnea (adult) (pediatric); K59.09 Other constipation; Z79.899 Other long term (current) drug therapy | CPT/HCPCS: 96127 ==

== ENCOUNTER 2024-10-23 09:43 | Outpatient (REF) | payer BC, SELFPAY ==
[2024-10-23 13:38] LABS: Appearance Urine Clear; Color Urine Yellow; Glucose Urine UA Negative (Negative); Leukocyte Esterase Urine Negative (Negative); Nitrite Urine Negative (Negative); PH 5.5 (5.0-9.0); Urine Blood Negative (Negative); Urine Ketones Negative (Negative); Urine Protein Negative (Neg-Trace)
[2024-10-23 13:50] LABS: Hematocrit 39.3 % (42.0-52.0); Hemoglobin 13.3 g/dl (14.0-18.0); Mean Corpuscular HGB Conc 33.8 g/dl (31.0-36.0); Mean Corpuscular Volume 82.7 fL (80.0-98.0); Mean Platelet Volume 12.1 fL (9.4-12.4); Platelet Count 181 X10*3/uL (160-400); Red Blood Count 4.75 X10*6/uL (4.60-5.80); Red Cell Distribution Width 13.6 % (11.0-16.0); White Blood Count 3.8 X10*3/uL (4.8-10.8)
[2024-10-23 14:16] LABS: HBS Num1 3.94 mIU/mL (0-7.99); HBc Num1 0.11 S/CO (0.00-0.79); HBsAGNum1 0.26 S/CO (0.00-0.99); HIV AB/AG Nonreactive (Nonreactive); HIV Num 1 0.05 S/CO (0.00-0.99); Hepatitis B Core Antibody Nonreactive (Nonreactive); Hepatitis B Surface Antigen Negative (Negative); Syphilis Screen Nonreactive (Nonreactive); ~HepC Num1 0.17 S/CO (0.00-0.79); ~Hepatitis B Surface Antibody NONREACTIVE (Nonreactive); ~Hepatitis C Antibody Nonreactive (Nonreactive)
[2024-10-23 14:19] LABS: Alanine Aminotransferase 22 U/L (0-40); Alkaline Phosphatase 84 U/L (39-117); Anion Gap 10 (12-20); Aspartate Amino Transferase 25 U/L (5-37); Bilirubin Total 0.4 mg/dL (0.0-1.0); Blood Urea Nitrogen 15 mg/dL (9-16); Calcium 8.9 mg/dL (8.4-10.2); Carbon Dioxide 25 mmol/L (22-29); Chloride 110 mmol/L (96-108); Estimated Glomerular Filt Rate > 60; Glucose Fasting 99 mg/dL (60-99); Potassium 4.3 mmol/L (3.3-5.1); Prostate Specific Antigen Scr 0.46 ng/mL (<0.05-4.0); Sodium 141 mmol/L (135-145); Total Protein 7.5 g/dL (6.5-8.0)
[2024-10-23 14:23] LABS: Creatinine Urine 181.18 mg/dL; Microalbumin Urine < 5.0 mg/L
[2024-10-24 05:55] LABS: CT PCR NOT DETECTED (Not Detect.); NG PCR NOT DETECTED (Not Detect.)
== END 2024-10-23 09:44 | disposition home or self-care (01) ==
LOC: HO.HMGCLDS 09:43
PROVIDERS: PCP Physician Assistant; Visit Provider Physician Assistant
DX: N52.9 Male erectile dysfunction, unspecified (principal); I10 Essential (primary) hypertension; Z20.2 Contact with and (suspected) exposure to infections with a predominantly sexual mode of transmission; Z11.3 Encounter for screening for infections with a predominantly sexual mode of transmission; R39.11 Hesitancy of micturition; Z12.5 Encounter for screening for malignant neoplasm of prostate; R30.0 Dysuria
CPT/HCPCS: 80053; 81003; 82043; 82570; 84153; 85027; 86704; 86706; 86780; 86803; 87340; 87389; 87491; 87591

== ENCOUNTER → 2025-02-13 11:05 | Outpatient (REF) | payer BC, SELFPAY ==
--- OUTSIDE RECORDS SUMMARY | 2025-02-13 11:55 | XMS_ITS | Clinical Summary ---
Author Organization [facility] it Address [address] [place] [address] Care Team Providers Care Decal Cutter Name Role Phone Aiden Bey MD Primary Care Provider [phone] Allergies No known active allergies Medications cyclobenzaprine (FLEXERIL) 10 mg tablet Active indomethacin (INDOCIN) 50 mg capsule Active Active Problems Problem Noted Date Diagnosed Date Seizure in childhood ([facility] V24, [facility] V28) 08/08/2024 Herpes simplex 08/08/2024 Knee pain 08/08/2024 [...] 5 Years) and At-Risk Patients (6 to 49 Years) (1 of 2 - PCV) 1992 DTaP,Tdap,and Td Vaccines (2 - Td or Tdap) 11/28/2016 11/28/2006 Zoster Vaccines (1 of 2) 2023 COVID-19 Vaccine (1 - 2023-2 5 season) 2024 Cholesterol Screening (Lipid Panel) 08/09/2024 07/03/2003 Colorectal Cancer Screening: Colonoscopy 08/09/2024 Depression Screening 08/09/2024 HIV Screening 08/09/2024 Social Influencers of Health Screening 08/09/2024 Influenza Vaccine (#1) 2025 Hepatitis C Screening Completed 06/14/2001 HIB Vaccines [...] age to complete this topic Meningococcal B Vaccine Aged Out No l onger eligible based on patient's age to complete [...] Result * Hepatitis C Screening (06/14/2001) Pathologist [facility] Hepatitis C Screening abstracted us Historical Provider HEALTH MAINTENANCE Final Result from Last 3 Months or Most Recently Relevant to Health Maintenance Care Teams Decal Cutter Relationship Specialty Start Date End Date Aiden Bey MD [address] [place] [id number] PCP - General 11/05/99
--- OUTSIDE RECORDS SUMMARY | 2025-02-13 11:55 | XMS_ITS | Patient Health Record ---
Author Organization [facility] Cassandra Mcneill Address [address] [facility] [place] [address] Care Team Providers Care Water Leak Repairer Name Role Phone Bobbi Woodard Primary Care Provider Bebeto Amezcua Unavailable [phone] Reason For Referral No Information Medications Medication SIG (Take, Route, Fr equency, Duration) Notes Start Date End Date Status Medical From: . . . Work 02/13/20 & ; Duration: 2 days 02/13/2020 Active Social History Tobacco Use: Social History Observation Description Date Details (start date - stop date) Current Smoker NA - NA Tobacco Use/Smoking Question Answer Notes Are you a: current smoker How many cigarettes a day do you smoke? 5 or les s Alcohol Screen Question Answer Notes Did you have a drink contain ing alcohol in the past year? Yes How often did you have a dri nk containing alcohol in the past year? Monthly or less (1 point) Points 1 Interpretation Negative Tobacco use other than smoking: Question Answer Notes Are you an other tobacco user? No Problems Problem Type SNOMED Code ICD Code Onset Dates Problem Status W/U Status Risk Notes Problem -Arthritis of foot, left (M19.072) Active confirmed Plan Of Treatment Pending Test Test Name Order Date ,R9321-VRI TENDON SHEATH/LIGAMENT 0 03/01/2018 Insurance Providers Payer Name Payer Address Payer Phone Subscriber Number Group Number Insured Name Patient Relationship to Insured Coverage Start Date Coverage End Date [employer] [address] [place] [phone] [id number] Kim Self - patient is the insured Medical (General) History Medical History History ICD Code Chicken pox Surgical History Surgery Date(Month/Year) carpal tunnel surgery 08/2019
--- OUTSIDE RECORDS SUMMARY | 2025-02-13 11:55 | XMS_ITS | Patient Health Record ---
Author Organization [facility] Address [address] [place] [address] Care Team Providers Care Shirt Bander Name Role Phone Khari Lyles Primary Care Provider Unavailab You Marrufo Jr Unavailable Allergies No Known Allergies Reason For Referral No Information Medications Medication [...] Problem Status W/U Status Risk Notes Problem 063664093 Colon cancer screening (Z12.11) Active confirmed Problem 587741291 Abnormal barium swallow (R93.3) Active confirmed Problem 66022701 Esophageal dysphagia (R13.19) Active confirmed Plan Of Treatment Future Test Test Name Order Date UPPER GI ENDOSCOPY 11/06/2023 COLONOSCOPY 11/06/2023 Insurance Providers Payer Name Payer Address Payer Phone Subscriber Number Group Number Insured Name Patient Relationship to Insured Coverage Start Date Coverage End Date [facility] [address] [place] [address] [phone] [id number] MATY HUGGINS Self - patient is the insured Medical (General) History Medical History History ICD Code Hypertension Gastroesophageal reflux disease Elevated body mass index Surgical History Surgery Date(Month/Year) Back surgery 2018 Carpal tunnel repair 2019
--- OUTSIDE RECORDS SUMMARY | 2025-02-13 11:56 | XMS_ITS | Data Portability ---
Author Organization [facility] Address [address] [place] [address] Assessment No assessment recorded. Plan of Treatment [...] Out Template DOT completed JUAN MIGUEL DIETRICH [place] - [facility] 03/13/2023 10:37:56 3 OC-UDS Send Out Template DOT completed Suzette Artis [place] - [employer] [facility] 11/12/2022 15:02:07 Imaging Results None recorded. Procedure Notes None recorded. Medical Equipment None Reported. Vitals None Recorded Social History None recorded. Functional Status None recorded. Mental Status None recorded. Family History Nothing Reported. Medical History No medical history recorded. Past Encounters Encounter ID Performer Location Encounter Start Date Encounter Closed Date Diagnosis/Indication Diagnosis SNOMED-CT Code Diagnosis ICD10 Code Diagnosis Note [id number] [address] [facility] [address] [place] [address] 03/04/2020 12:03:02 03/04/2020 13:38:25 [id number] [facility] [address] [facility] [address] [place] [address] 11/12/2022 14:43:13 11/12/2022 15:13:11 History and physical examination, occupation 460790002 Z02.1 [id number] FORTUNATO ALICEA [address] [facility] [address] [place] [address] 03/13/2023 10:15:25 03/13/2023 10:39:47 History and physical examination, occupation 470768203 Z02.1 Health Concerns Section Related Observation LastModified by Organization Detai ls LastModified Time None Recorded Concern Status LastModified by Organization Details LastModified Time None Recorded Advance Directives Directive None Recorded Payers Insurance Date Sequence Insurance Name Policy Number Policy Doherty Covered Member ID Doherty Member ID Guarantor Name 03/13/2023 [employer]ESCREEN Escreen OTHER OTHER Th antoni White
== END ==
LOC: HO.SL 11:05
PROVIDERS: PCP Physician Assistant; Visit Provider Physician Assistant
DX: G47.33 Obstructive sleep apnea (adult) (pediatric) (principal); R06.83 Snoring
CPT/HCPCS: 95806

== ENCOUNTER → 2025-02-13 11:27 | Outpatient (BNV) | payer BC, SELFPAY | PROVIDERS: PCP Physician Assistant; Visit Provider Internal Medicine | DX: R06.83 Snoring (principal) | CPT/HCPCS: 95806 ==

== ENCOUNTER 2025-02-26 10:58 | Outpatient (REF) | payer BC, SELFPAY ==
--- NOTE | ~2025-02-26 | XR_ITS ---
EXAMINATION: XR SHOULDER, LEFT CLINICAL INFORMATION: M25.512 - Pain in left shoulder COMPARISON: None available. TECHNIQUE: Three views of the left shoulder. FINDINGS: Minimal osteophyte formation is present involving the humeral head and glenoid. There is no dislocation. There is no soft tissue calcification. AC joint is intact and unremarkable. XR/XR shoulder LT min 2V IMPRESSION: Mild degenerative changes of the glenohumeral joint. Electronically signed by: Ignacio Laureano MD 02/26/2025 12:32 PM EDT
== END 2025-02-26 10:59 | disposition home or self-care (01) ==
LOC: HO.HMGCX 10:58
PROVIDERS: PCP Physician Assistant; Visit Provider Physician Assistant Medical
DX: M25.512 Pain in left shoulder (principal)
CPT/HCPCS: 73030

== ENCOUNTER 2025-02-26 10:58 | Outpatient (AMB) | payer BC, SELFPAY ==
[2025-02-26 11:38] VITALS: BP 134/86; PULSE 80; TEMP 36.8; O2SAT 96; BMI 41.3
--- NOTE | 2025-02-26 11:38 | MHC.OFFWIV ---
Intake Vital Signs 02/26/25 11:38 Height 6 ft 4 in Weight 339 lb 6 oz BMI 41.3 BP 134/86 Blood Pressure Location Lt brachial Position Sitting Pulse 80 Pulse Source Pulse Oximeter Temp 98.3 F Temp Source Oral Pulse Oximetry (%) 96 Oxygen Delivery Method Room Air Intake Visit Reasons: EP LT shoulder pain Patient Tobacco Use Status: Former Tobacco user Commercial Credit Officer Required: No Allergies No Known Allergies Allergy (Verified 10/02/24 09:26) Do you need a note to return to daycare/school/sports/work: No HPI HPI Comments History of Present Illness Details History of Present Illness - The patient is a 49-year-old male presenting with left shoulder pain. - The pain began approximately one week ago, possibly after resting the arm out of a truck window while driving. - The patient describes the pain as constant and severe enough to cause nausea, with no relief from ibuprofen 800 mg except for aiding sleep. - The patient has a history of carpal tunnel syndrome, with persistent tenderness in the hand. - He denies trauma or fall. - He denies neck pain or back pain, arm pain, elbow pain, or wrist pain. Physical Exam General: Cooperative, healthy appearing, comfortable, no acute distress and well developed Limitations: Limited movement in the left arm, unable to lift it outward or upward Respiratory: Normal respiratory effort and able to speak in complete sentences. Clear to auscultation bilaterally Cardiovascular: Regular rate and rhythm. Normal S1 and S2 Skin: No rashes or lesions noted Neuro: Sensation is intact. Extremities: Decrease ROM of the left shoulder due to pain. FROM of the left elbow, wrist and hand. Hand handicraft or hobby shop manager is intact. TTP of the left AC joint and bicipital groove and bicep. No TTP of the left scapula or trapezius. Unable to perform the lift off test or apprehension test due to pain. Supination and pronation of the left arm is intact. Patient was informed and verbally consented to the use of an ambient scribe for clinic note documentation during this visit. [facility] Medical History (Updated 10/02/24 @ 09:35 by Khari Lyles PA-C) ELIZABETH (obstructive sleep apnea) HTN (hypertension) Obesity HLD (hyperlipidemia) GERD (gastroesophageal reflux disease) Urinary hesitancy Surgical History History of back surgery History of lumbar surgery Hx of carpal tunnel repair Family History Mother DMII (diabetes mellitus, type 2) HTN (hypertension) Father HTN (hypertension) Social History Housing: Apartment Alcohol intake: current Alcohol intake frequency: a few times a month Alcohol type: beer Patient Tobacco Use Status: Former Tobacco user Tobacco use type: Cigarette e-Cigarette/Vaping Use: Never Used Second Hand Smoke Exposure: Yes service: No Current occupational status: employed Current occupation: [employer] Cognitive needs: No Hearing needs: No Vision needs: Yes Review of Systems Const All systems reviewed & are unremarkable except as noted in HPI and below Physical Exam Vital Signs: Last Vital Signs Temp 98.3 F 02/26/25 11:38 Pulse 80 02/26/25 11:38 BP 134/86 02/26/25 11:38 Pulse Ox 96 02/26/25 11:38 Oxygen Delivery Method Room Air 02/26/25 11:38 BMI result Body Mass Index 41.3 Results Reviewed Results Reviewed: Reviewed the x-ray in the office today Assessment & Plan Assessment & Plan (1) Shoulder pain, left: Code(s): M25.512 - Pain in left shoulder Qualifiers: Chronicity: acute Qualified Code(s): M25.512 - Pain in left shoulder Plan Most likely AC separation vs dislocation vs arthritis vs bursitis vs tendonitis vs rotator cuff tear Plan - Order an x-ray of the left shoulder to assess for any dislocation or fracture. - Provide a sling for immobilization of the left shoulder. - Discuss pain management options - will refer him to ortho - follow up with his PCP. Orders: Orders XR shoulder LT min 2V Today M25.512 - Pain in left shoulder Referrals Orthopedics Referral M25.512 - Pain in left shoulder Medications: New naproxen 500 mg PO Q12H PRN 20 tabs 0RF pain 7 days cyclobenzaprine 5 mg PO tid PRN 21 tabs 0RF Muscle Spasm 7 days Coding Level of Care Code Est Pt Level 4 (92598) Diagnoses Acute pain of left shoulder M25.512 Chronicity: acute
--- OUTSIDE RECORDS SUMMARY | 2025-02-26 12:02 | XMS_ITS | Clinical Summary ---
Author Organization [facility] it Address [address] [place] [address] Care Team Providers Care Business Objects Architect Name Role Phone Aiden Bey MD Primary Care Provider [phone] Allergies No known active allergies Medications cyclobenzaprine (FLEXERIL) 10 mg tablet Active indomethacin (INDOCIN) 50 mg capsule Active Active Problems Problem Noted Date Diagnosed Date Seizure in childhood ([facility] V24, [facility] V28) 08/08/2024 Herpes simplex 08/08/2024 Knee pain [...] ars (1 of 2 - PCV) 1992 DTaP,Tdap,and Td Vaccines (2 - Td or Tdap) 11/28/2016 11/28/2006 Zoster Vaccines (1 of 2) 2023 COVID-19 Vaccine (1 - 2023-2 5 season) 2024 Depression Screening 07/31/2024 Cholesterol Screening (Lipid Panel) 08/09/2024 07/03/2003 Colorectal Cancer Screening: Colonoscopy 08/09/2024 HIV Screening 08/09/2024 Social Influencers of [...] mg/dL Blood Venous blood specimen / Unknown Historical Provider LAB BLOOD ORDERABLES Arabella l Result * Hepatitis C Screening (06/14/2001) Pathologist [facility] Hepatitis C Screening abstracted us Historical Provider HEALTH MAINTENANCE Final Result from Last 3 Months or Most Recently Relevant to Health Maintenance Care Teams Business Objects Architect Relationship Specialty Start Date End Date Aiden Bey MD [address] [place] [id number] PCP - General 11/05/99
--- OUTSIDE RECORDS SUMMARY | 2025-02-26 12:02 | XMS_ITS | Patient Health Record ---
Author Organization [facility] Cassandra Mcneill Address [address] [facility] [place] [address] Care Team Providers Care Student Nurse Name Role Phone Bobbi Woodard Primary Care Provider Bebeto Amezcua Unavailable [phone] Reason For Referral No Information Medications Medication [...] Treatment Pending Test Test Name Order Date ,[id number] TENDON SHEATH/LIGAMENT 0 03/01/2018 Insurance Providers Payer Name Payer Address Payer Phone Subscriber Number Group Number Insured Name Patient Relationship to Insured Coverage Start Date Coverage End Date Cigna [address] [place] [phone] [id number] Kim Self - patient is the insured Medical (General) History Medical History History ICD Code Chicken pox Surgical History Surgery Date(Month/Year) carpal tunnel surgery 08/2019
--- OUTSIDE RECORDS SUMMARY | 2025-02-26 12:02 | XMS_ITS | Patient Health Record ---
Author Organization [facility] Address [address] [place] [address] Care Team Providers Care Eating Disorder Specialist Name Role Phone Khari Lyles Primary Care [...] Problem Status W/U Status Risk Notes Problem [id number] Colon cancer screening (Z12.11) Active confirmed Problem [id number] Abnormal barium swallow (R93.3) Active confirmed Problem [id number] Esophageal dysphagia (R13.19) Active confirmed Plan Of Treatment Future Test Test Name Order Date UPPER GI ENDOSCOPY 11/06/2023 COLONOSCOPY 11/06/2023 Insurance Providers Payer Name Payer Address Payer Phone Subscriber Number Group Number Insured Name Patient Relationship to Insured Coverage Start Date Coverage End Date [facility] [address] [place] [address] [id number] MATY HUGGINS Self - patient is the insured Medical (General) History Medical History History ICD Code Hypertension Gastroesophageal reflux disease Elevated body mass index Surgical History Surgery Date(Month/Year) Back surgery 2018 Carpal tunnel repair 2019
== END 2025-02-26 13:37 | disposition home or self-care (01) ==
PROVIDERS: PCP Physician Assistant; Visit Provider Physician Assistant Medical
DX: M25.512 Pain in left shoulder (principal)

== ENCOUNTER → 2025-02-26 12:21 | Outpatient (BNV) | payer BC, SELFPAY | PROVIDERS: PCP Physician Assistant; Visit Provider Radiology Diagnostic Radiology | DX: M19.012 Primary osteoarthritis, left shoulder (principal) | CPT/HCPCS: 73030 ==